=== PATIENT | male | born 1945 | race Caucasian/White ===

== ENCOUNTER 2022-04-15 20:41 | Emergency (ER) | payer MEDICARE, SELFPAY ==
[2022-04-15 20:59] VITALS: BP 133/81; PULSE 96; RESP 18; TEMP 37.4; O2SAT 94; BMI 53.1
--- NOTE | 2022-04-15 21:22 | ED.GENADULT ---
HPI - General Adult General Chief complaint: Extremity Pain/Injury, Lower Stated complaint: Possible Cellulitis on L leg Time Seen by Provider: 04/15/22 21:04 History of Present Illness HPI narrative: Pt is a 77 year old gentleman who presents with redness in his left lower extremity which just occurred today. Pt has no fever or chills. Pt has chronic lower extremity venous stasis ulcers which are unchanged from previous. Pt is prone to cellulitis of the lower extremity due to the ulcerations. In fact, I saw him with a similar presentation exactly 2 years ago tonight with a similar presentation. Pt has no pain. The redness extends from the ankle to the libia. Some mild worsening of swelling also noted. No SOB, No difficulty ambulating. Pain is minimal. No recent injuries. No treatment prior to arrival. No other symptoms. Related Data Home Medications Medication Instructions Recorded Confirmed furosemide 20 mg tablet (Lasix) 20 mg PO DAILY 04/15/22 04/15/22 metoprolol tartrate 25 mg tablet 25 mg PO DAILY 04/15/22 04/15/22 Allergies Allergy/AdvReac Type Severity Reaction Status Date / Time Penicillins Allergy Mild swollen Verified 04/15/22 21:07 ears Review of Systems Status of ROS: Reports: 10 or more systems reviewed and unremarkable except as noted in History and below [facility] Medical History (Updated 04/15/22 @ 21:36 by Martinez Arteaga MD) Chronic edema Diabetes Hypertension Peripheral vascular disease Exam Narrative: Exam Narrative: EXAM GENERAL: Patient appears comfortable and well. EYES: No scleral icterus. THYROID: no thyroid nodules or thyromegaly. LYMPH: No supraclavicular or cervical lymphadenopathy. SKIN: Visible skin seen during exam normal or with benign process only. EXT: Chronic lower extremity edema with chronic ulcerations. Erythema noted in the left lower extremity to the knee. No new skin breakdown. HEART: Regular rate and rhythm with no murmurs, rubs, or gallops. LUNGS: Clear to auscultation bilaterally with no crackles or wheezes. ABD: Soft, non tender, non distended. PSYCH: Good eye contact, speech is not pressured. Const: Vital Signs, click to edit/add: Vital Signs - 24 hr 04/15/22 20:59 Temperature 99.3 F Pulse Rate [Right Pulse Oximeter] 96 Respiratory Rate 18 Blood Pressure [Ri ght Upper Arm] 133/81 Pulse Oximetry 94 Oxygen Delivery Me thod Room Air Course Course Hospital Course: Pt seen and examined. Pt refuses venous ultrasound as previous was too painful for him. Pt understand the risk of doing so. Reevaluation(s) Reevaluation #1: Pt changed his mind on the ultrasound and then changed it back to not being willing to wait for one. Time: 22:58 Vital Signs Vital signs: Initial Vital Signs Temperature 99.3 F 04/15/22 20:59 Temperature Source Temporal Artery Scan 04/15/22 20:59 Pulse Rate 96 04/15/22 20:59 Respiratory Rate 18 04/15/22 20:59 Blood Pressure 133/81 04/15/22 20:59 Blood Pressure Mean 98 04/15/22 20:59 Blood Pressure Position Sitting 04/15/22 20:59 Pulse Oximetry 94 04/15/22 20:59 Oxygen Delivery Method 04/15/22 20:59 Vital Signs Temperature 99.3 F 04/15/22 20:59 Pulse Rate 96 04/15/22 20:59 Respiratory Rate 18 04/15/22 20:59 Blood Pressure 133/81 04/15/22 20:59 Pulse Oximetry 94 04/15/22 20:59 Oxygen Delivery Method 04/15/22 20:59 Temperature 99.3 F 04/15/22 20:59 Pulse Rate 96 04/15/22 20:59 Respiratory Rate 18 04/15/22 20:59 Blood Pressure 133/81 04/15/22 20:59 Pulse Oximetry 94 04/15/22 20:59 Oxygen Delivery Method 04/15/22 20:59 Medical Decision Making [facility] Narrative Medical decision making narrative: Pt is an obese gentleman with chronic lower extremity ulcerations who presents with redness in the left leg. No fever or signs of sepsis. Pt refuses DVT assessment and further workup. Willing to take a Tdap and be discharged on oral antibiotics which I did prescribe in the form of Keflex. I did recommend close outpt follow up. Area of erythema was carefully circumscribed. Differential Diagnosis Differential Diagnosis: Cellulits, PVD, DVT, Infected ulceration Discharge Plan Discharge Clinical Impression: Cellulitis Patient Disposition: Home, Self-Care Condition: Stable Instructions: Cellulitis (ED) Additional Instructions: Leg Elevation Keflex as directed Outpt follow up. Prescriptions: No Action metoprolol tartrate 25 mg tablet 25 mg PO DAILY furosemide [Lasix] 20 mg tablet 20 mg PO DAILY Stand Alone Forms: [employer] Info Instructions
[2022-04-15] MEDS: TETANUS/DIPHTH/PERTUSSIS 0.5 ML SYRINGE IM (21:43)
--- NOTE | 2022-04-15 22:59 | ED.NURSE ---
Pt states he has been here 40 minutes and can't wait any longer. Pt understands risks with refusing ultrasound and states he wants to leave now. MD aware. D/c instructions given and pt verbalizes understanding.
== END 2022-04-15 23:04 | disposition home or self-care (01) ==
LOC: ED 21:37
PROVIDERS: Emergency Provider Internal Medicine
DX: L03.116 Cellulitis of left lower limb (principal)
CPT/HCPCS: 90471; 90715; 99283; 99284

== ENCOUNTER 2022-04-17 06:42 | Observation (INO) | payer MEDICARE, SELFPAY ==
[2022-04-17] VITALS (7 sets, daily range): BP systolic 133–154; BP diastolic 87–103; PULSE 85–107; RESP 18–20; TEMP 36.4–36.7; O2SAT 93–98; BMI 51.5; BMI 57.5
--- NOTE | 2022-04-17 07:17 | CRLHL7_ITS ---
For Patients: As a result of the Century Cures Act, medical imaging exams and procedure reports are released immediately into your electronic medical record. You may view this report before your referring provider. If you have questions, please contact your health care provider. INDICATION: Leg pain and swelling. TECHNIQUE: Ultrasound venous duplex lower left extremity. Compression venous exam was performed using dominguez-scale, color Doppler, and spectral Doppler analysis. COMPARISON: 08/13/2012. FINDINGS: Deep veins: Sonographic imaging demonstrates the left common femoral, deep femoral, superficial femoral, popliteal, posterior tibial and the contralateral right common femoral veins to be fully compressible with normal color Doppler blood flow. Superficial veins: Greater saphenous vein is fully compressible. No popliteal cyst. IMPRESSION: Normal left lower extremity venous ultrasound, no sign of deep venous thrombosis. Dictated by Liam Hunter MD @ 04/17/2022 8:10:02 AM (Electronically Signed)
--- NOTE | 2022-04-17 07:32 | ED.GENADULT ---
HPI - General Adult General Date Seen: 04/17/22 <Kristel Sevilla MD - Last Filed: 04/17/22 08:05> Chief complaint: Lower Extremity Swelling <Kristel Sevilla MD - Last Filed: 04/17/22 08:05> Stated complaint: leg pain <Kristel Sevilla MD - Last Filed: 04/17/22 08:05> Time Seen by Provider: 04/17/22 06:58 <Kristel Sevilla MD - Last Filed: 04/17/22 08:05> Source: patient <Kristel Sevilla MD - Last Filed: 04/17/22 08:05> History of Present Illness HPI narrative: Patient presents for re-evaluation after coming in 2 days ago for pain and redness in the left leg. He had refused an ultrasound 2 days ago and comes back in saying he would like to get that done today. He says the redness and swelling started 3 days ago, he came in 2 days ago was started on Keflex and says he has taken 3 doses of that. He has not noted any change in the redness as of yet. He denies systemic symptoms. He does have a history of chronic venous stasis but does not typically have redness in his legs. He has marked asymmetry in the legs right now in terms of redness. He does have some pain although it is not severe. He does not note significant worsening in redness since 2 days ago when he was previously seen. He does have chronic ulcerations on both ankles, left greater than right. He says he has a family member who is a nurse who is been helping to address those and according to him the ulcerations are improving. He has not sought any professional wound care. He previously has seen Dr. Lorenz in the [facility] but has not seen anyone in clinic for over a year. He says he has been told he has borderline diabetes previously. He does have a history of high blood pressure and is supposed to take a water pill. He does not have a prior history of DVT. <Kristel Sevilla MD - Last Filed: 04/17/22 08:05> Related Data Home medications: Home Medications Medication Instructions Recorded Confirmed furosemide 20 mg tablet (Lasix) 20 mg PO DAILY 04/15/22 04/17/22 metoprolol succinate 25 mg 50 mg PO DAILY 04/17/22 04/17/22 tablet,extended release 24 hr (Toprol XL) <Kristel Sevilla MD - Last Filed: 04/17/22 08:05> Allergies/adverse reactions: Allergies Allergy/AdvReac Type Severity Reaction Status Date / Time Penicillins Allergy Mild swollen Verified 04/15/22 21:07 ears <Kristel Sevilla MD - Last Filed: 04/17/22 08:05> Review of Systems Status of ROS: Reports: 10 or more systems reviewed and unremarkable except as noted in History and below <Kristel Sevilla MD - Last Filed: 04/17/22 08:05> [facility] Medical History: Medical History (Updated 04/17/22 @ 17:31 by Lucila Ricardo MD) Diabetes Hypertension Lymphedema Morbid obesity Noncompliance <Kristel Sevilla MD - Last Filed: 04/17/22 08:05> Surgical History: Surgical History (Updated 04/17/22 @ 17:25 by Lucila Ricardo MD) H/O elbow surgery <Kristel Sevilla MD - Last Filed: 04/17/22 08:05> Social History: Social History Highest level of school completed/degree received: some college, no degree Smoking Status: Former smoker Do you use any of these nicotine containing products: None How often do you have a drink containing alcohol: monthly or less Alcohol type: wine How often do you have six or more drinks on one occasion: Never AUDIT-C Alcohol total score: 1 Non-prescribed substance use: denies use Caffeine: Yes (coffee) service: No <Kristel Sevilla MD - Last Filed: 04/17/22 08:05> Exam Narrative: Exam Narrative: Vital signs as noted above. In general, an alert, well-appearing patient. Head: Normocephalic, atraumatic. Eyes: Pupils are equal reactive. Extraocular movements are full. Conjunctivae are normal. ENT: Mucous membranes are moist. Throat is normal. Neck: Supple without lymphadenopathy. Heart: Regular rate and rhythm. No murmur or rub. Lungs: Clear bilaterally. No increased work of breathing, crackles or wheezes. Abdomen: Soft and nontender. No organomegaly. Extremities: Marked edema in both lower extremities, chronic venous stasis changes noted bilaterally with significant erythema on the left in somewhat of a geographic pattern, well-demarcated. There is tenderness without fluctuance or crepitus. There is a superficial ulceration noted on the lateral ankle on the left which is suppurative and somewhat malodorous. I did not undress the right ankle. Neurologic: Patient is alert and oriented to person and place. Speech is fluent. Face is symmetric. Moves all extremities equally. Affect: Confrontational. Skin: Warm and dry. Well perfused. <Kristel Sevilla MD - Last Filed: 04/17/22 08:05> Const: Vital Signs, click to edit/add: Vital Signs - 24 hr 04/17/22 06:51 04/17/22 09:41 Temperature 98.1 F Pulse Rate [Right Pulse Oximeter] 107 H 104 H Respiratory Rate 20 20 Blood Pressure [Ri ght Upper Arm] 145/96 H 154/87 H Pulse Oximetry 98 97 Oxygen Delivery Me thod Room Air Room Air <Kristel Sevilla MD - Last Filed: 04/17/22 08:05> Vital Signs, click to edit/add: Vital Signs - 24 hr 04/17/22 06:51 04/17/22 09:41 Temperature 98.1 F Pulse Rate [Right Pulse Oximeter] 107 H 104 H Respiratory Rate 20 20 Blood Pressure [Ri ght Upper Arm] 145/96 H 154/87 H Pulse Oximetry 98 97 Oxygen Delivery Me thod Room Air Room Air <Marci Wise MD - Last Filed: 04/17/22 20:17> Documenting provider has reviewed patient's vital signs: yes <Kristel Sevilla MD - Last Filed: 04/17/22 08:05> Course Course Hospital Course: Based on the appearance of the leg, absence of any appreciable change after 24 hours of antibiotics, and what I suspect is some degree of medical noncompliance, I recommended that he consider inpatient for a day or 2. Is currently adamantly opposed to that. He says he has things to do at home, he also says that in 2019 someone here told him he should use a bedpan which took issue with any seems to be holding onto that is the reason that he does not want to stay into hospital. He also says that he believes in prayer. I have talked with him a bit about my rationale for thinking he would do better in the hospital for a day or to including better wound management, IV antibiotics. Currently he is refusing. For now, I have recommended an alternate plan of some labs, IV antibiotics, ultrasound to rule out DVT which I think is relatively unlikely. If labs are reasonable, then I think he may be able to go home, continue the oral antibiotics and we will see how he does. It may be that he just needs more time on the oral antibiotics. If labs are significantly abnormal, I think pushing more for inpatient treatment would be reasonable, though he may continue to refused. I do think he would benefit from wound clinic, which as it is an outpatient therapy he says he would be agreeable to. This will be signed out to Dr. Patricia to follow up on labs and ultrasound. <Kristel Sevilla MD - Last Filed: 04/17/22 08:05> Reevaluation(s) Reevaluation #1: Have reviewed labs and recommendations with patient. With the C reactive protein being elevated, white blood count 70311 and my a review of his left leg, do agree with Dr. Sevilla that this patient should be hospitalized. This patient used to be 1 of my primary care patient's when I was in clinic. Have reviewed with him that I really do think he needs to come in for cellulitis of this left lower extremity. Dr. Sevilla had initiated Rocephin. Negrito is going to go into the hospital but tells me he does not want to stay along. I have reviewed with him that we need to do IV antibiotics, we can talk to the hospitalist about how long they think he might need to stay but ultimately we need to care for his leg and improve the infection. I subsequently talked to Dr. Ricardo the hospitalist whom is on-call. She will be completing the morning report and then coming to see the patient. He is stable. Will obtain screening COVID on him. <Marci Wise MD - Last Filed: 04/17/22 20:17> Time: 08:41 <Marci Wise MD - Last Filed: 04/17/22 20:17> Reevaluation #2: Have spoken with Dr. Ricardo formally read regarding this patient. She would like me to give him 1 g ertapenem. They will need to make some discharges before he can come to the floor. She does accept the patient and agrees with need for hospitalization. <Marci Wise MD - Last Filed: 04/17/22 20:17> Time: 09:16 <Marci Wise MD - Last Filed: 04/17/22 20:17> Vital Signs Vital signs: Initial Vital Signs Temperature 98.1 F 04/17/22 06:51 Temperature Source Temporal Artery Scan 04/17/22 06:51 Pulse Rate 107 H 04/17/22 06:51 Respiratory Rate 20 04/17/22 06:51 Blood Pressure 145/96 H 04/17/22 06:51 Blood Pressure Mean 112 04/17/22 06:51 Blood Pressure Position Sitting 04/17/22 06:51 Pulse Oximetry 98 04/17/22 06:51 Oxygen Delivery Method 04/17/22 06:51 Vital Signs Temperature 98.1 F 04/17/22 06:51 Pulse Rate 107 H 04/17/22 06:51 Respiratory Rate 20 04/17/22 06:51 Blood Pressure 145/96 H 04/17/22 06:51 Pulse Oximetry 98 04/17/22 06:51 Oxygen Delivery Method 04/17/22 06:51 Temperature 97.9 F 04/17/22 15:00 Pulse Rate 94 04/17/22 15:00 Respiratory Rate 18 04/17/22 15:00 Blood Pressure 133/87 04/17/22 15:00 Pulse Oximetry 96 04/17/22 15:00 Oxygen Delivery Method 04/17/22 15:00 <Kristel Sevilla MD - Last Filed: 04/17/22 08:05> Initial Vital Signs Temperature 98.1 F 04/17/22 06:51 Temperature Source Temporal Artery Scan 04/17/22 06:51 Pulse Rate 107 H 04/17/22 06:51 Respiratory Rate 20 04/17/22 06:51 Blood Pressure 145/96 H 04/17/22 06:51 Blood Pressure Mean 112 04/17/22 06:51 Blood Pressure Position Sitting 04/17/22 06:51 Pulse Oximetry 98 04/17/22 06:51 Oxygen Delivery Method 04/17/22 06:51 Vital Signs Temperature 98.1 F 04/17/22 06:51 Pulse Rate 107 H 04/17/22 06:51 Respiratory Rate 20 04/17/22 06:51 Blood Pressure 145/96 H 04/17/22 06:51 Pulse Oximetry 98 04/17/22 06:51 Oxygen Delivery Method 04/17/22 06:51 Temperature 97.9 F 04/17/22 15:00 Pulse Rate 94 04/17/22 15:00 Respiratory Rate 18 04/17/22 15:00 Blood Pressure 133/87 04/17/22 15:00 Pulse Oximetry 96 04/17/22 15:00 Oxygen Delivery Method 04/17/22 15:00 <Marci Wise MD - Last Filed: 04/17/22 20:17> Medical Decision Making Lab Data Lab results reviewed: Yes I reviewed the patient's lab results <Marci Wise MD - Last Filed: 04/17/22 20:17> Labs: Lab Results 04/17/22 04/17/22 04/17/22 Range/Units 07:40 07:40 07:40 WBC 19.30 H (4.50-11.00) K/uL RBC 5.27 (4.30-5.90) m/uL Hgb 15.8 (13.5-17.5) gm/dL Hct 46.5 (37.0-53.0) % MCV 88 (80-100) fL MCH 30 (26-34) pg MCHC 34 (32-36) gm/dL RDW Coeff of Alena 13.6 (11.5-15.5) % Plt Count 225 (140-440) K/uL Neut % (Auto) 87.3 H (42.0-72.0) % Lymph % (Auto) 5.6 L (20-44) % [place] % (Auto) 5.4 (0.0-11.0) % Eos % (Auto) 1.1 (0.0-7.0) % Baso % (Auto) 0.2 (0.0-3.0) % Neut # (Auto) 16.80 H (1.7-7.0) K/uL Lymph # (Auto) 1.10 (0.90-2.90) K/uL [place] # (Auto) 1.00 H (0.00-0.90) K/UL Eos # (Auto) 0.20 (0.00-0.50) K/uL Baso # (Auto) 0.00 (0.00-0.30) K/uL Sodium 134 L (135-149) mmol/L Potassium 3.8 (3.6-5.1) mmol/L Chloride 102 (96-114) mmol/L Carbon Dioxide 23 (20-32) mmol/L BUN 27 (7-30) mg/dL Creatinine 1.1 (0.5-1.5) mg/dL Estimated Creat Clear 48.59 Estimated GFR 70 ml/min Glucose 151 H (60-115) mg/dL Hemoglobin A1c 7.11 H (0-5.6) % Calcium 9.1 (8.4-10.6) mg/dL C-Reactive Protein 5.6 H (0.5-1.0) mg/dL SARS-CoV-2 (PCR) (Negative) 04/17/22 Range/Units 08:41 WBC (4.50-11.00) K/uL RBC (4.30-5.90) m/uL Hgb (13.5-17.5) gm/dL Hct (37.0-53.0) % MCV (80-100) fL MCH (26-34) pg MCHC (32-36) gm/dL RDW Coeff of Alena (11.5-15.5) % Plt Count (140-440) K/uL Neut % (Auto) (42.0-72.0) % Lymph % (Auto) (20-44) % [place] % (Auto) (0.0-11.0) % Eos % (Auto) (0.0-7.0) % Baso % (Auto) (0.0-3.0) % Neut # (Auto) (1.7-7.0) K/uL Lymph # (Auto) (0.90-2.90) K/uL [place] # (Auto) (0.00-0.90) K/UL Eos # (Auto) (0.00-0.50) K/uL Baso # (Auto) (0.00-0.30) K/uL Sodium (135-149) mmol/L Potassium (3.6-5.1) mmol/L Chloride (96-114) mmol/L Carbon Dioxide (20-32) mmol/L BUN (7-30) mg/dL Creatinine (0.5-1.5) mg/dL Estimated Creat Clear Estimated GFR ml/min Glucose (60-115) mg/dL Hemoglobin A1c (0-5.6) % Calcium (8.4-10.6) mg/dL C-Reactive Protein (0.5-1.0) mg/dL SARS-CoV-2 (PCR) Negative SARS-CoV-2 (Negative) <Kristel Sevilla MD - Last Filed: 04/17/22 08:05> Lab Results 04/17/22 04/17/22 04/17/22 Range/Units 07:40 07:40 07:40 WBC 19.30 H (4.50-11.00) K/uL RBC 5.27 (4.30-5.90) m/uL Hgb 15.8 (13.5-17.5) gm/dL Hct 46.5 (37.0-53.0) % MCV 88 (80-100) fL MCH 30 (26-34) pg MCHC 34 (32-36) gm/dL RDW Coeff of Alena 13.6 (11.5-15.5) % Plt Count 225 (140-440) K/uL Neut % (Auto) 87.3 H (42.0-72.0) % Lymph % (Auto) 5.6 L (20-44) % [place] % (Auto) 5.4 (0.0-11.0) % Eos % (Auto) 1.1 (0.0-7.0) % Baso % (Auto) 0.2 (0.0-3.0) % Neut # (Auto) 16.80 H (1.7-7.0) K/uL Lymph # (Auto) 1.10 (0.90-2.90) K/uL [place] # (Auto) 1.00 H (0.00-0.90) K/UL Eos # (Auto) 0.20 (0.00-0.50) K/uL Baso # (Auto) 0.00 (0.00-0.30) K/uL Sodium 134 L (135-149) mmol/L Potassium 3.8 (3.6-5.1) mmol/L Chloride 102 (96-114) mmol/L Carbon Dioxide 23 (20-32) mmol/L BUN 27 (7-30) mg/dL Creatinine 1.1 (0.5-1.5) mg/dL Estimated Creat Clear 48.59 Estimated GFR 70 ml/min Glucose 151 H (60-115) mg/dL Hemoglobin A1c 7.11 H (0-5.6) % Calcium 9.1 (8.4-10.6) mg/dL C-Reactive Protein 5.6 H (0.5-1.0) mg/dL SARS-CoV-2 (PCR) (Negative) 04/17/22 Range/Units 08:41 WBC (4.50-11.00) K/uL RBC (4.30-5.90) m/uL Hgb (13.5-17.5) gm/dL Hct (37.0-53.0) % MCV (80-100) fL MCH (26-34) pg MCHC (32-36) gm/dL RDW Coeff of Alena (11.5-15.5) % Plt Count (140-440) K/uL Neut % (Auto) (42.0-72.0) % Lymph % (Auto) (20-44) % [place] % (Auto) (0.0-11.0) % Eos % (Auto) (0.0-7.0) % Baso % (Auto) (0.0-3.0) % Neut # (Auto) (1.7-7.0) K/uL Lymph # (Auto) (0.90-2.90) K/uL [place] # (Auto) (0.00-0.90) K/UL Eos # (Auto) (0.00-0.50) K/uL Baso # (Auto) (0.00-0.30) K/uL Sodium (135-149) mmol/L Potassium (3.6-5.1) mmol/L Chloride (96-114) mmol/L Carbon Dioxide (20-32) mmol/L BUN (7-30) mg/dL Creatinine (0.5-1.5) mg/dL Estimated Creat Clear Estimated GFR ml/min Glucose (60-115) mg/dL Hemoglobin A1c (0-5.6) % Calcium (8.4-10.6) mg/dL C-Reactive Protein (0.5-1.0) mg/dL SARS-CoV-2 (PCR) Negative SARS-CoV-2 (Negative) <Marci Wise MD - Last Filed: 04/17/22 20:17> Imaging Data Venous US: Attestation: I have reviewed the pertinent imaging results. <Marci Wise MD - Last Filed: 04/17/22 20:17> Radiologist's impression: Patient: NEGRITO ERICKSON Facility:?[facility] Patient ID:?[id number] Site Patient ID:?[id number]. Site :?[id number] Study:?US Extremity Left LEV-04/17/2022 8:00:10 AM Ordering Physician:Latonia Humphries Final Report: INDICATION: Leg pain and swelling. TECHNIQUE: Ultrasound venous duplex lower left extremity. Compression venous exam was performed using dominguez-scale, color Doppler, and spectral Doppler analysis. COMPARISON: 08/13/2012. FINDINGS: Deep veins: Sonographic imaging demonstrates the left common femoral, deep femoral, superficial femoral, popliteal, posterior tibial and the contralateral right common femoral veins to be fully compressible with normal color Doppler blood flow. Superficial veins: Greater saphenous vein is fully compressible. No popliteal cyst. IMPRESSION: Normal left lower extremity venous ultrasound, no sign of deep venous thrombosis. Dictated by Liam Hunter MD @ 04/17/2022 8:10:02 AM (Electronic Signature) <Marci Wise MD - Last Filed: 04/17/22 20:17> Critical Care Time Critical Care Time Critical Care Time: No <Marci Wise MD - Last Filed: 04/17/22 20:17> Discharge Plan Discharge Clinical Impression: Cellulitis <Kristel Sevilla MD - Last Filed: 04/17/22 08:05> Patient Disposition: Admitted As Inpatient <Kristel Sevilla MD - Last Filed: 04/17/22 08:05> Condition: Unchanged <Kristel Sevilla MD - Last Filed: 04/17/22 08:05>
[2022-04-17 07:59] LABS: Basophils Percent Auto 0.2 % (0.0-3.0); Eosinophils Percent Auto 1.1 % (0.0-7.0); Hematocrit 46.5 % (37.0-53.0); Hemoglobin* 15.8 gm/dL (13.5-17.5); Immature Granulocytes Pct Auto 0.4 %; Lymphocytes Percent Auto 5.6 % (20-44); Mean Corpuscular HGB Conc 34 gm/dL (32-36); Mean Corpuscular Hemoglobin 30 pg (26-34); Mean Corpuscular Volume 88 fL (80-100); Monocytes Percent Auto 5.4 % (0.0-11.0); Neutrophils Percent Auto 87.3 % (42.0-72.0); Platelet Count* 225 K/uL (140-440); RDW Coefficient of Variation % 13.6 % (11.5-15.5); Red Blood Count 5.27 m/uL (4.30-5.90)
[2022-04-17 08:02] LABS: Slide Review Reflex No
[2022-04-17] MEDS: cefTRIAXone 1 GM in 0.9 % SODIUM CHLORIDE Mini-bag 100 ML IVPB (08:05)
[2022-04-17 08:17] LABS: Chloride* 102 mmol/L (96-114); Sodium* 134 mmol/L (135-149)
[2022-04-17 08:18] LABS: Potassium* 3.8 mmol/L (3.6-5.1)
[2022-04-17 08:20] LABS: Creatinine* 1.1 mg/dL (0.5-1.5); Est. Creatinine Clearance* 48.59; Estimated Glomerular Filt Rate 70 ml/min
[2022-04-17 08:21] LABS: Blood Urea Nitrogen* 27 mg/dL (7-30); Calcium* 9.1 mg/dL (8.4-10.6); Carbon Dioxide* 23 mmol/L (20-32); Glucose* 151 mg/dL (60-115)
[2022-04-17 08:24] LABS: C Reactive Protein* 5.6 mg/dL (0.5-1.0)
[2022-04-17 09:30] LABS: SARS PCR* Negative SARS-CoV-2 (Negative)
[2022-04-17] MEDS: ERTAPENEM 1 GM in 0.9 % SODIUM CHLORIDE Mini-bag 100 ML IVPB (09:32)
[2022-04-17 10:10] LABS: Hemoglobin A1C* 7.11 % (0-5.6)
--- NOTE | 2022-04-17 11:58 | PM.IMHP1 ---
Hospitalist- H&P: HPI History of Present Illness Date Seen: 04/17/22 Chief complaint: leg pain Narrative: ADMISSION HISTORY AND PHYSICAL - HOSPITALIST Chief Complaint: My left leg is swollen HPI: 77-year-old Prabhu presents with ongoing pain and redness to his left leg. He states his legs are always enlarged and about once a year he gets a cellulitis. Sometimes he just has to go to the ED for antibiotics other times he has been admitted. It appears he has either had Keflex or Ancef in the past. He states this is the worst it has ever been. He denies fevers and chills. He has had a good appetite. He states that the symptoms have really taken off in the last 3 days. He said he is having some difficulty walking as the leg is swollen and painful. He said the tipping point for coming in was worry about it being a blood clot. As well as the redness creeping up his mid thigh. I've updated the PFSH, medications and allergies in the [facility]se tabs. INVESTIGATIONS: LABS/MICRO/ECG/IMAGING T-max 99.3? in the last 3 days Hypertensive to 154/87 Pulse 1 0 4-107 Respiratory rate 20 Pulse ox 97% Reported weight 136 kg CBC is remarkable for a marked leukocytosis 19.3, 87.3% neutrophils Hemoglobin is 15.8, platelet count 225 Sodium today is 134, creatinine is 1.1 A1c 7.11 C reactive protein 5.6 Glucose 151 Left lower leg ultrasound: Normal left lower extremity venous ultrasound, no sign of deep venous thrombosis. REVIEW OF SYSTEMS: 12-point ROS completed with patient and negative unless otherwise stated in HPI or below. PHYSICAL EXAM: CODE STATUS: Full code CONSTITUTIONAL: Conversive, good historian. A/O. Knows setting and context. VITAL SIGNS: see record. HEENT: Normocephalic, atraumatic. PERRL, EOMI, conjunctivae pink, no scleral icterus. Ears and nose externally normal. Pharynx normal. NECK: No JVD. No carotid bruit, no thyromegaly, no adenopathy. CHEST: Clear to auscultation bilaterally HEART: S1 and S2 normal. No harsh murmurs. Edema MUSCULOSKELETAL: Left leg: Diffuse edema, erythema, leathered lymphedema with dry skin with chronic stasis changes. No weeping noted. Fungal toenails. Right leg: Less swollen much less red however same stasis and lymphedema changes. NEURO: Cranial nerves intact. Grossly intact. No asymmetric findings. SKIN: No rashes, petechiae, concerning changes PSYCHIATRIC: Euthymic. ADMIT TO MEDSURG: FLOOR CARE DVT: Lovenox GI: PO intake Time spent: 70 minutes examining patient, conferring with family and patient, care staff, developing care plan [facility] Medical History (Updated 04/17/22 @ 17:31 by Lucila Ricardo MD) Diabetes Hypertension Lymphedema Morbid obesity Noncompliance Surgical History (Updated 04/17/22 @ 17:25 by Lucila Ricardo MD) H/O elbow surgery Social History Highest level of school completed/degree received: some college, no degree Smoking Status: Former smoker Do you use any of these nicotine containing products: None How often do you have a drink containing alcohol: monthly or less Alcohol type: wine How often do you have six or more drinks on one occasion: Never AUDIT-C Alcohol total score: 1 Non-prescribed substance use: denies use Caffeine: Yes (coffee) service: No Meds Home Medications and Allergies Home Medications Medication Instructions Recorded Confirmed Type furosemide 20 mg tablet (Lasix) 20 mg PO DAILY 04/15/22 04/17/22 History metoprolol succinate 25 mg 50 mg PO DAILY 04/17/22 04/17/22 History tablet,extended release 24 hr (Toprol XL) Allergies Allergy/AdvReac Type Severity Reaction Status Date / Time Penicillins Allergy Mild swollen Verified 04/15/22 21:07 ears Exam Const: Vital Signs, click to edit/add: Vital Signs - 24 hr 04/17/22 06:51 04/17/22 09:41 Temperature 98.1 F Pulse Rate [Right Pulse Oximeter] 107 H 104 H Respiratory Rate 20 20 Blood Pressure [Ri ght Upper Arm] 145/96 H 154/87 H Pulse Oximetry 98 97 Oxygen Delivery Me thod Room Air Room Air Hospitalist - H&P: Result Labs Labs: Short CBC 04/17/22 Range/Units 07:40 WBC 19.30 H (4.50-11.00) K/uL Hgb 15.8 (13.5-17.5) gm/dL Hct 46.5 (37.0-53.0) % Plt Count 225 (140-440) K/uL BMP 04/17/22 07:40 Sodium 134 L Potassium 3.8 Chloride 102 Carbon Dioxide 23 BUN 27 Creatinine 1.1 Glucose 151 H Calcium 9.1 Assessment and Plan Assessment and plan (1) Cellulitis: Problem comment: 1 g ertapenem Q 24 hours. Wound care consult. Trend inflammatory markers. Blood cultures pending. Status: Acute (2) Noncompliance: Problem comment: complicating care Status: Acute (3) Hypertension: Problem comment: Prescribed metoprolol, noncompliance Status: Acute (4) Diabetes: Problem comment: Non compliant SSI/Accuchecks diabetic teaching Status: Acute (5) Lymphedema: Problem comment: Severe Status: Acute (6) Morbid obesity: Problem comment: BMI greater than 50 Status: Acute
--- NOTE | 2022-04-17 12:54 | ED.NURSE ---
given report to Kristel Ta who will admit the patient to M/S via wc to room 277.
[2022-04-17] MEDS: METOPROLOL TARTRATE 100 MG TABLET 50 MG PO (20:49)
[2022-04-17] MEDS: ENOXAPARIN 40 MG/0.4 ML INJ SUBCUT (20:50)
[2022-04-17] MEDS: SODIUM CHLORIDE 0.9 % (FLUSH) 10 ML SYRINGE 5 ML IVF (20:53)
--- NOTE | 2022-04-17 23:03 | PC.NURSE ---
Shift note: Pt is independent in room. Both LE appears edematous, reddened and weeping. Confirmed mild discomfort. Pleasant and cooperative with care and treatment.
[2022-04-18 03:00] VITALS: BP 140/90; PULSE 81; RESP 20; TEMP 36.6; O2SAT 95
--- NOTE | 2022-04-18 05:10 | PC.NURSE ---
[id number] Pt independent in room, rating pain 4/10 during night, declined pain medication. encouraged to elevate LLE, compliant. LLE outlined, red, raised and some drainage noted.
[2022-04-18] MEDS: OMEPRAZOLE 20 MG CAPSULE DR 40 MG PO (06:29)
[2022-04-18 07:00] VITALS: BP 122/74; PULSE 91; RESP 18; TEMP 36.9; O2SAT 96
[2022-04-18 08:04] LABS: Basophils Percent Auto 0.2 % (0.0-3.0); Eosinophils Percent Auto 1.7 % (0.0-7.0); Hematocrit 45.1 % (37.0-53.0); Hemoglobin* 15.3 gm/dL (13.5-17.5); Immature Granulocytes Pct Auto 0.7 %; Lymphocytes Percent Auto 9.1 % (20-44); Mean Corpuscular HGB Conc 34 gm/dL (32-36); Mean Corpuscular Hemoglobin 30 pg (26-34); Mean Corpuscular Volume 88 fL (80-100); Monocytes Percent Auto 7.3 % (0.0-11.0); Platelet Count* 220 K/uL (140-440); RDW Coefficient of Variation % 13.5 % (11.5-15.5); Red Blood Count 5.13 m/uL (4.30-5.90); White Blood Count* 16.86 K/uL (4.50-11.00)
[2022-04-18 08:05] LABS: HCO3 VBG 23 mmol/L (21-28); PCO2 VBG 32 mmHG (40-50); PO2 VBG 79.9 mmHG (25-47); pH VBG 7.453 (7.32-7.43)
[2022-04-18 08:08] LABS: Slide Review Reflex No
[2022-04-18 08:43] LABS: Chloride* 104 mmol/L (96-114); Sodium* 133 mmol/L (135-149)
[2022-04-18 08:44] LABS: Albumin* 3.6 g/dL (3.3-5.0)
[2022-04-18 08:45] LABS: Potassium* 4.1 mmol/L (3.6-5.1)
--- NOTE | 2022-04-18 08:46 | REH.OT ---
Orders received for OT eval and treat. Patient screened for OT needs. None noted. Patient up independently in room. Able to compete ADLs I. No formal OT warranted.
[2022-04-18 08:47] LABS: Alanine Aminotransferase* 17 U/L (4-50); Alkaline Phosphatase* 112 U/L (40-150); Aspartate Amino Transferase* 28 U/L (12-35); Blood Urea Nitrogen* 23 mg/dL (7-30); Carbon Dioxide* 20 mmol/L (20-32); Cholesterol* 135 mg/dL (90-199); Est. Creatinine Clearance* 53.44; Estimated Glomerular Filt Rate 78 ml/min; Glucose* 130 mg/dL (60-115); Total Protein* 7.5 g/dL (6.0-8.3); Uric Acid* 8.7 mg/dL (2.2-8.4)
[2022-04-18 08:48] LABS: HDL Cholesterol* 28 mg/dL (>=40); LDL Cholesterol Calculated 84 mg/dL (<100); Triglycerides* 114 mg/dL (40-149)
[2022-04-18] MEDS: METOPROLOL SUCCINATE (XL) 25 MG TAB PO (08:48)
[2022-04-18] MEDS: SODIUM CHLORIDE 0.9 % (FLUSH) 10 ML SYRINGE 5 ML IVF ×2 (08:48→21:33)
[2022-04-18] MEDS: FUROSEMIDE 20 MG TABLET PO (08:48)
[2022-04-18] MEDS: ERTAPENEM 1 GM in 0.9 % SODIUM CHLORIDE Mini-bag 100 ML IVPB (08:49)
[2022-04-18 08:50] LABS: C Reactive Protein* 7.4 mg/dL (0.5-1.0)
[2022-04-18 08:56] LABS: NT Pro B Type NatriureticPept* 2850 pg/mL
[2022-04-18 15:00] VITALS: BP 132/72; PULSE 88; PULSE 91; RESP 18; TEMP 36.6; O2SAT 96
--- NOTE | 2022-04-18 15:39 | P.IMPN_ITS ---
Progress Note: A&P Assessment and plan (1) Cellulitis: Problem details: Appreciate the exceptional wound care consult. Adding vancomycin. Continue ertapenem for now. Wound culture pending Trend inflammatory markers. Blood cultures pending. Status: Acute (2) Noncompliance: Problem details: complicating care Status: Acute (3) Hypertension: Problem details: Prescribed metoprolol, noncompliance Status: Acute (4) Diabetes: Problem details: Non compliant SSI/Accuchecks diabetic teaching Status: Acute (5) Lymphedema: Problem details: Severe Status: Acute (6) Morbid obesity: Problem details: BMI greater than 50 Status: Acute Subjective Date Seen: 04/18/22 Interval history: Hospital Medicine Daily Progress Note - Day #: CC: OVERNIGHT UPDATES FROM STAFF & MED, LAB, IMAGING UPDATES 98.4 122/74 Pulse 91 Respiratory rate 18 Pulse ox 96% on room air 150.4 kilos CBC down trended from 19.3-16.8 pH 7.45 we this morning Mildly low sodium 133 Creatinine is 1.0 Uric acid 8.7 I ionized calcium 1.10 CRP up trending from 5.6-7.4 Blood sugars have been less than 200 Review of Systems: See subjective Cardiac: No new chest pain/pressure/palpitations. Respiratory: no new dyspnea. GI: No abdominal bloating Objective: Vitals: see above Lungs: Clear. Cardiac: S1S2. large edematous, red weepy right leg; outline shows extension up the left thigh. Erysipelas appearing anterior thigh. Posterior calf has such tense skin, the skin is breaking down and weepy. Disposition/Potential discharge - Likely to return to previous living situation. Total time is 35 minutes with greater than 50% spent in counseling and coordination of care. Exam Const: Vital Signs, click to edit/add: Vital Signs - 24 hr 04/17/22 19:00 04/17/22 23:00 04/17/22 23:00 Temperature 97.6 F 97.6 F Pulse Rate [Pulse Oximeter] 91 85 Respiratory Rate 18 18 20 Blood Pressure [Le ft Arm] 146/91 H 138/101 H Pulse Oximetry 96 93 93 Oxygen Delivery Me thod Room Air Room Air Room Air 04/18/22 03:00 04/18/22 07:00 04/18/22 07:00 Temperature 97.9 F 98.4 F Pulse Rate [Pulse Oximeter] 81 91 Respiratory Rate 20 18 Blood Pressure [Le ft Arm] 140/90 H 122/74 Pulse Oximetry 95 96 96 Oxygen Delivery Me thod Room Air Room Air Room Air Labs Labs: Laboratory Results - last 24 hr 04/18/22 04/18/22 04/18/22 07:30 07:30 07:30 WBC 16.86 H RBC 5.13 Hgb 15.3 Hct 45.1 MCV 88 MCH 30 MCHC 34 RDW Coeff of Alena 13.5 Plt Count 220 Neut % (Auto) 81.0 H Lymph % (Auto) 9.1 L [place] % (Auto) 7.3 Eos % (Auto) 1.7 Baso % (Auto) 0.2 Neut # (Auto) 13.70 H Lymph # (Auto) 1.50 [place] # (Auto) 1.20 H Eos # (Auto) 0.30 Baso # (Auto) 0.00 VBG pH 7.453 H VBG pCO2 32 L VBG pO2 79.9 H VBG HCO3 23 Sodium 133 L Potassium 4.1 Chloride 104 Carbon Dioxide 20 BUN 23 Creatinine 1.0 Estimated Creat Clear 53.44 Estimated GFR 78 Glucose 130 H Uric Acid 8.7 H Calcium 9.0 Ionized Calcium Phil 1.10 L Magnesium 2.0 Total Bilirubin 1.0 AST 28 ALT 17 Alkaline Phosphatase 112 C-Reactive Protein 7.4 H NT-Pro-B Natriuret Pep 2850 Total Protein 7.5 Albumin 3.6 Triglycerides 114 Cholesterol 135 LDL Cholesterol, Calc 84 HDL Cholesterol 28 L TSH 04/18/22 07:30 WBC RBC Hgb Hct MCV MCH MCHC RDW Coeff of Alena Plt Count Neut % (Auto) Lymph % (Auto) [place] % (Auto) Eos % (Auto) Baso % (Auto) Neut # (Auto) Lymph # (Auto) [place] # (Auto) Eos # (Auto) Baso # (Auto) VBG pH VBG pCO2 VBG pO2 VBG HCO3 Sodium Potassium Chloride Carbon Dioxide BUN Creatinine Estimated Creat Clear Estimated GFR Glucose Uric Acid Calcium Ionized Calcium Phil Magnesium Total Bilirubin AST ALT Alkaline Phosphatase C-Reactive Protein NT-Pro-B Natriuret Pep Total Protein Albumin Triglycerides Cholesterol LDL Cholesterol, Calc HDL Cholesterol TSH 2.470
[2022-04-18 16:23] LABS: Lactate* 1.2 mmol/L (0.5-1.9)
[2022-04-18 16:51] LABS: Procalcitonin* 0.31 ng/mL (<0.50)
[2022-04-18 19:00] VITALS: BP 120/59; PULSE 81; RESP 18; TEMP 36.4; O2SAT 94
--- NOTE | 2022-04-18 19:31 | PC.NURSE ---
shift note: pt with increased redness with blistering to lt l/e from original markings. Redness from foot to groin on Lt l/e. PP bilat feet weak. Lt l/e hot to touch and 3+ edema. RESIDENCY DIRECTOR from wound clinic assessed and dressed lt l/e. mepilex to rt l/e with tubex to cover. Lt with xeroform to back of calf with abd then tubex to cover. LS clr. pt afeb with stable vss. IV to rt FA intact. Pt expressing anger with poc. Nurse freelance digital project manager, patient avocate and security talking with pt. Pt continued to express anger about situation and requested apology from nurse freelance digital project manager. Nurse freelance digital project manager met with pt and talked to him. Pt's son Chris updated on phone.
[2022-04-18] MEDS: ENOXAPARIN 40 MG/0.4 ML INJ SUBCUT (21:32)
[2022-04-18 23:00] VITALS: BP 126/62; PULSE 78; PULSE 81; RESP 18; TEMP 36.5; O2SAT 94; O2SAT 96
[2022-04-19 03:00] VITALS: BP 138/80; PULSE 72; RESP 18; TEMP 36.7; O2SAT 93
[2022-04-19 07:00] VITALS: BP 147/105; PULSE 72; PULSE 80; RESP 27; TEMP 36.4; O2SAT 97
--- NOTE | 2022-04-19 07:12 | PC.NURSE ---
VSS on RA. Patient is alert and oriented x4. Denies pain this shift. IV antibiotic infused. Pt is independent in room, continent of bowel and bladder. Call light appropriate. Call light is within reach.
[2022-04-19] MEDS: ERTAPENEM 1 GM in 0.9 % SODIUM CHLORIDE Mini-bag 100 ML IVPB (08:07)
[2022-04-19] MEDS: OMEPRAZOLE 20 MG CAPSULE DR 40 MG PO (08:15)
[2022-04-19 08:17] LABS: HCO3 VBG 25 mmol/L (21-28); Lactate* 1.4 mmol/L (0.5-1.9); PCO2 VBG 40 mmHG (40-50); PO2 VBG 37.2 mmHG (25-47); pH VBG 7.404 (7.32-7.43)
[2022-04-19 08:23] LABS: Hematocrit 43.1 % (37.0-53.0); Hemoglobin* 14.5 gm/dL (13.5-17.5); Mean Corpuscular HGB Conc 34 gm/dL (32-36); Mean Corpuscular Hemoglobin 30 pg (26-34); Mean Corpuscular Volume 89 fL (80-100); Platelet Count* 230 K/uL (140-440); Red Blood Count 4.83 m/uL (4.30-5.90)
[2022-04-19 08:36] LABS: Slide Review Reflex No
[2022-04-19 08:40] LABS: Chloride* 105 mmol/L (96-114); Potassium* 5.2 mmol/L (3.6-5.1); Sodium* 136 mmol/L (135-149)
[2022-04-19 08:43] LABS: Blood Urea Nitrogen* 24 mg/dL (7-30); Carbon Dioxide* 21 mmol/L (20-32); Creatinine* 1.1 mg/dL (0.5-1.5); Est. Creatinine Clearance* 48.59; Estimated Glomerular Filt Rate 70 ml/min
[2022-04-19 08:44] LABS: Calcium* 8.5 mg/dL (8.4-10.6); Glucose* 118 mg/dL (60-115)
[2022-04-19 08:46] LABS: C Reactive Protein* 7.3 mg/dL (0.5-1.0)
--- NOTE | 2022-04-19 10:19 | PM.IMPN1 ---
Progress Note: A&P Assessment and plan (1) Cellulitis: Problem details: Appreciate the exceptional wound care consult. discontinue vancomycin. Continue ertapenem. wound culture growing gram negative rods; susceptibility pending Trend inflammatory markers. Blood cultures pending (NGTD). continue lasix and elevate legs Status: Acute (2) Morbid obesity: Problem details: BMI greater than 50 Status: Acute (3) Lymphedema: Problem details: Severe Status: Acute (4) Diabetes: Problem details: Non compliant continue SSI/Accuchecks Status: Acute (5) Hypertension: Problem details: Prescribed metoprolol, noncompliance Status: Acute (6) Noncompliance: Problem details: complicating care Status: Acute (7) Hyperkalemia: Problem details: potassium 5.2; will give IV lasix X1 Status: Acute Subjective Date Seen: 04/19/22 Interval history: patient sitting at table eating breakfast he feels sausage and potatoes are too dry No acute events overnight patient encouraged to elevate legs Exam Narrative: Exam Narrative: Gen: Morbidly obese male NAD HEENT: NcAT EOMI MMM CV: RRR s1 s2 Lctab Abd: obese soft, nt Extremities: lower extremities wrapped in dressing; continues to have erythema extending to mid thigh; warm to touch; 2+ edema Const: Vital Signs, click to edit/add: Vital Signs - 24 hr 04/18/22 15:00 04/18/22 15:00 04/18/22 15:00 Temperature 97.8 F Pulse Rate [Pulse Oximeter] 91 88 Respiratory Rate 18 18 18 Blood Pressure [Le ft Arm] 132/72 Pulse Oximetry 96 96 Oxygen Delivery Me thod Room Air Room Air 04/18/22 19:00 04/18/22 23:00 04/18/22 23:00 Temperature 97.6 F Pulse Rate [Pulse Oximeter] 81 81 Respiratory Rate 18 18 18 Blood Pressure [Le ft Arm] 120/59 L Pulse Oximetry 94 94 Oxygen Delivery Me thod Room Air Room Air 04/18/22 23:00 04/19/22 03:00 Temperature 97.7 F 98.1 F Pulse Rate [Pulse Oximeter] 78 72 Respiratory Rate 18 18 Blood Pressure [Le ft Arm] 126/62 138/80 Pulse Oximetry 96 93 Oxygen Delivery Me thod Room Air Room Air Labs Labs: Laboratory Results - last 24 hr 04/18/22 04/18/22 04/18/22 07:30 07:30 07:30 WBC RBC Hgb Hct MCV MCH MCHC Plt Count VBG pH VBG pCO2 VBG pO2 VBG HCO3 Sodium Potassium Chloride Carbon Dioxide BUN Creatinine Estimated Creat Clear Estimated GFR Glucose Lactate 1.2 Calcium C-Reactive Protein Procalcitonin 0.31 Prolactin Baseline Cancelled 04/19/22 04/19/22 04/19/22 07:44 07:44 07:44 WBC 12.90 H RBC 4.83 Hgb 14.5 Hct 43.1 MCV 89 MCH 30 MCHC 34 Plt Count 230 VBG pH 7.404 VBG pCO2 40 VBG pO2 37.2 VBG HCO3 25 Sodium 136 Potassium 5.2 H Chloride 105 Carbon Dioxide 21 BUN 24 Creatinine 1.1 Estimated Creat Clear 48.59 Estimated GFR 70 Glucose 118 H Lactate 1.4 Calcium 8.5 C-Reactive Protein 7.3 H Procalcitonin 0.20 Prolactin Baseline
[2022-04-19] MEDS: SODIUM CHLORIDE 0.9 % (FLUSH) 10 ML SYRINGE 5 ML IVF (10:27)
[2022-04-19] MEDS: FUROSEMIDE 20 MG TABLET PO (10:27)
[2022-04-19] MEDS: METOPROLOL SUCCINATE (XL) 25 MG TAB PO (10:28)
[2022-04-19 11:00] VITALS: BP 147/111; PULSE 88; RESP 27; O2SAT 95
[2022-04-19] MEDS: FUROSEMIDE 10 MG/ML inj IVP (11:38)
--- NOTE | 2022-04-19 11:55 | PM.WSCN ---
Date of Consult Consult date: 04/18/22 Requesting Physician: Hospitalist Primary Care Provider: Not a Local Provider Consult Narrative Reason for consult: BLE chronic lymphedema and open wounds to BLE Narrative: Glen Mina is a 77 year old male with poorly controlled type 2 diabetes and morbid obesity, admitted to hospital with cellulitis of LLE on 04/17/22. Known history of hypertension and he was prescribed Lasix but admits he has not taken it recently as he is long overdue for annual physical exam and needs to reestablish care. He initially had presented to the ER on 04/15/2022, with complaints of a left lower extremity redness and pain. No known injuries. ER note mentions the redness extended from ankle to knee. He was offered ultrasound on 04/15/2022 which he declined for DVT evaluation, but subsequently we was diagnosed with cellulitis and received tdap and started on oral Keflex and discharged home. he presented for re-evaluation of the cellulitis again to the ER in 04/17/2022. He has known venous insufficiency and lymphedema to bilateral lower extremities. He has a healing venous ulceration to right lower extremity that he had prior to his admission to the hospital. He was treating the wound to right lower extremity with Vaseline and a non adherent dressing. He does not utilize compression therapy. He does not take his diabetic medications as previously prescribed and does not regularly check his blood sugars. He states he has not had a follow-up for his diabetes in well over a year. Does not count carbs. 04/17/22 A1C 7.1%. BMI 56.1 He denies having chills or fever today. He has been vitally stable. He is on IV ertapenem pending cultures. Up walking independently around hospital room. Tolerating PO. Review of Systems Status of ROS: Reports: 6 or more systems reviewed and unremarkable except as noted in History and below 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 Surgical History (Updated 05/16/22 @ 10:46 by Jazlyn Ferreira) H/O elbow surgery History of Achilles tendon repair Family History (Updated 05/16/22 @ 10:51 by Jazlyn Ferreira) Mother Dementia Brother Sleep apnea Father Myocardial infarction Social History (Updated 05/16/22 @ 10:51 by Jazlyn Ferreira) Narrative: Nicotine dependence Does not drink alcohol Does not use illicit drugs Highest level of school completed/degree received: some college, no degree Smoking Status: Never smoker Do you use any of these nicotine containing products: None How often do you have a drink containing alcohol: monthly or less Alcohol type: wine How often do you have six or more drinks on one occasion: Never AUDIT-C Alcohol total score: 1 Non-prescribed substance use: denies use Caffeine: Yes (coffee) service: No Meds Home Medications and Allergies Allergies Allergy/AdvReac Type Severity Reaction Status Date / Time Penicillins Allergy Mild swollen Verified 05/20/22 11:04 ears Exam Narrative: Exam Narrative: General: NAD, Alert Pulmonary: unlabored. Speaking in full sentences. Cardiac: Pedal pulses strong and palpable to bilateral feet. BLE: Hyper pigmentation hemosiderin staining, hyperplasia with small areas of hyperkeratosis to bilateral lower extremities left greater than right. 3+ nonpitting edema. thickened dystrophic nails. Right leg 1cmX0.5cmX0.1cm, 100% closed epithelialized, scab. no drainage. rosas-wound WNL. LLE: small ulceration superior to ankle lateral aspect, measuring 1.7cmX1.5cmX0.2cm-moderate serosang drainage full-thickness, 100% slough and biofilm. Additional ulceration proximal lateral aspect measuring [id number]-moderate serosang drainage full-thickness 75% adherent slough and biofilm, 25% subcutaneous. well-demarcated circumferential erythema, raised confluent induration, and edema on his left lower extremity extending from dorsal aspect of left foot up to his left thigh. No fluctuance or crepitus. Skin temp increased compared to RLE. Skin marker outline showing erythema is just outside the boundary. Neuro: grossly intact Const: Vital Signs, click to edit/add: Vital Signs - 24 hr 04/18/22 15:00 04/18/22 15:00 04/18/22 15:00 Temperature 97.8 F Pulse Rate [Pulse Oximeter] 91 88 Respiratory Rate 18 18 18 Blood Pressure [Le ft Arm] 132/72 Pulse Oximetry 96 96 Oxygen Delivery Me thod Room Air Room Air 04/18/22 19:00 04/18/22 23:00 04/18/22 23:00 Temperature 97.6 F Pulse Rate [Pulse Oximeter] 81 81 Respiratory Rate 18 18 18 Blood Pressure [Le ft Arm] 120/59 L Pulse Oximetry 94 94 Oxygen Delivery Me thod Room Air Room Air 04/18/22 23:00 04/19/22 03:00 Temperature 97.7 F 98.1 F Pulse Rate [Pulse Oximeter] 78 72 Respiratory Rate 18 18 Blood Pressure [Le ft Arm] 126/62 138/80 Pulse Oximetry 96 93 Oxygen Delivery Me thod Room Air Room Air Documenting provider has reviewed patient's vital signs: yes Labs Labs: Short CBC 04/19/22 Range/Units 07:44 WBC 12.90 H (4.50-11.00) K/uL Hgb 14.5 (13.5-17.5) gm/dL Hct 43.1 (37.0-53.0) % Plt Count 230 (140-440) K/uL BMP 04/19/22 07:44 Sodium 136 Potassium 5.2 H Chloride 105 Carbon Dioxide 21 BUN 24 Creatinine 1.1 Glucose 118 H Calcium 8.5 Assessment and Plan Assessment and plan (1) Morbid obesity: Problem comment: BMI greater than 50 Status: Acute (2) Lymphedema: Problem comment: Severe - he needs weight loss and lymphedema care. Status: Acute (3) Type 2 diabetes with skin ulcer of lower extremity: Problem comment: Instructing on diabetic care was given. 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 I suspect he will be than on an oral antibiotic with follow-up with the wound care clinic next week. Status: Acute Plan Discussed at length that success with his lymphedema, diabetes, and wound healing is multifactorial and he will need to make significant permeant lifestyle changes.? ?? DM2 & Morbid Obesity: Keep blood sugars below 170 at all times, ideally 150 to help with wound healing. Increase dietary lean protein consumption. Start multi-vitamin with iron and zinc. Recommend nutritional consult for patient to receive education to help him with losing weight and keeping his blood sugars well controlled. Focus will be on sustainable weightloss while supporting his nutritional needs. Recommended patient speak with his medical provider to see if he is eligible to start mounjaro to help with management of his diabetes and facilitate weightloss. ? Lyhmphedema: tubigrip applied see wound orders below patient to keep legs elevated when sitting up in chair.? Advised he needs to walk minimum of 4x a day for 5-10min. ? ?? Wound Care: LLE lateral wound- cleanse with wound cleanser, apply medihoney to xeroform and place on LLE wound. Cover with ABD-secure with H size tubigrip from toes to knee. RLE posterior calf wound- cleanse with wound cleanser, apply medihoney to xeroform and place on wound. Cover with 3X3 or similar size border foam gauze (mepilex). Apply size G tubi-lay out and detail drafter from toes to knee. Change EOD & PRN? Referral to wound center upon hospital discharge to assist patient in getting velcro compression wraps and lymphedema pumps. ? ?? verbalized an understanding, was open and receptive to our discussion topics and care plan.?
--- NOTE | 2022-04-19 12:54 | PM.WSPN ---
Progress Note: A&P Assessment and plan (1) Chronic ulcer of lower extremity: Status: Acute (2) Edema of both lower legs: Status: Acute (3) Venous insufficiency (chronic) (peripheral): Status: Acute Plan To discharge home. Will continue on abx treatment per hospitalist. edema and wounds are stable and adequate managed with current dressings. wound center on 04/26/21 at 0800. Plans for initiation of Velcro compression wraps and measurements to begin process for insurance approval of lymphedema. No changes to wound care orders. Time Spent With Patient Total time spent: 25 Subjective Time Seen by Provider: 12:30 Date Seen: 04/19/22 Interval history: seen yesterday by wound services for LLE cellulitis and BLE edema and wounds. wound culture culture grew gram negative-sensitivities are pending. continues on IV ertapenem. Remains afebrile, VSS. LLE edema improved. Patient reports pain improved. Dressings CDI. Compliant with Tubigrip compression overnight two-layer not utilize as patient reports a history of allergy/ sensitivity to Coban. LLE wound stable no change from yesterday. Patient discharge from hospital, will f/u in wound center Exam Narrative: Exam Narrative: General: NAD, alert interactive Head: normal Cardiac: pedal pulses 2+ BLE: erythema improved, more diffuse today, to starting to recede. no change to wound size or characteristics from yesterdays evaluation, edema stable. Psych: normal affect Const: Vital Signs, click to edit/add: Vital Signs - 24 hr 04/18/22 15:00 04/18/22 15:00 04/18/22 15:00 Temperature 97.8 F Pulse Rate [Pulse Oximeter] 91 88 Respiratory Rate 18 18 18 Blood Pressure [Le ft Arm] 132/72 Pulse Oximetry 96 96 Oxygen Delivery Me thod Room Air Room Air 04/18/22 19:00 04/18/22 23:00 04/18/22 23:00 Temperature 97.6 F Pulse Rate [Pulse Oximeter] 81 81 Respiratory Rate 18 18 18 Blood Pressure [Le ft Arm] 120/59 L Pulse Oximetry 94 94 Oxygen Delivery Me thod Room Air Room Air 04/18/22 23:00 04/19/22 03:00 Temperature 97.7 F 98.1 F Pulse Rate [Pulse Oximeter] 78 72 Respiratory Rate 18 18 Blood Pressure [Le ft Arm] 126/62 138/80 Pulse Oximetry 96 93 Oxygen Delivery Me thod Room Air Room Air Documenting provider has reviewed patient's vital signs: yes Labs Labs: Laboratory Results - last 24 hr 04/18/22 04/18/22 04/18/22 07:30 07:30 07:30 WBC RBC Hgb Hct MCV MCH MCHC Plt Count VBG pH VBG pCO2 VBG pO2 VBG HCO3 Sodium Potassium Chloride Carbon Dioxide BUN Creatinine Estimated Creat Clear Estimated GFR Glucose Lactate 1.2 Calcium C-Reactive Protein Procalcitonin 0.31 Prolactin Baseline Cancelled 04/19/22 04/19/22 04/19/22 07:44 07:44 07:44 WBC 12.90 H RBC 4.83 Hgb 14.5 Hct 43.1 MCV 89 MCH 30 MCHC 34 Plt Count 230 VBG pH 7.404 VBG pCO2 40 VBG pO2 37.2 VBG HCO3 25 Sodium 136 Potassium 5.2 H Chloride 105 Carbon Dioxide 21 BUN 24 Creatinine 1.1 Estimated Creat Clear 48.59 Estimated GFR 70 Glucose 118 H Lactate 1.4 Calcium 8.5 C-Reactive Protein 7.3 H Procalcitonin 0.20 Prolactin Baseline
[2022-04-19 13:00] VITALS: RESP 18; TEMP 36.7
--- NOTE | 2022-04-19 15:20 | P.DS_ITS ---
DS: Providers Provider Date Seen: 04/19/22 Date of admission: 04/17/22 13:00 Primary care physician: Not a Local Provider Admitting Clinician: Lucila Ricardo MD Consults: 04/17/22 07:16 Consult to Wound Care [CONS] Urgent Comment: Consulting Provider: Kristel Sevilla 04/17/22 13:56 Consult to Occupational Therapy [CONS] Routine Comment: Reason(s) for OT Consult:: Evaluate and Treat Any Restrictions?:: No Restrictions Consult to Physical Therapy [CONS] Routine Comment: Reason(s) for PT Consult:: Evaluate and Treat Any Restrictions?:: No Restrictions Consult to Bale Tie Machine Operator [CONS] Routine Comment: Reason for Consult:: Social Service Consult Attending Physician on discharge: Lucila Ricardo MD Date of Discharge: 04/19/22 DS: Diagnosis Discharge Diagnosis (1) Cellulitis of left lower extremity: Status: Acute Problem details: We will do 2 doses of IV ertapenem both tomorrow 04/20/2022 and 04/21/2022. I suspect he will be than on an oral antibiotic with follow-up with the wound care clinic next week. 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 (3) Lymphedema: Status: Acute Problem details: Severe - he needs weight loss and lymphedema care. (4) Noncompliance: Status: Acute Problem details: complicating care DS: Summary Hospital Course Hospital Course: HOSPITALIST DISCHARGE SUMMARY ATTENDING PHYSICIAN: Lucila Ricardo MD FINAL DIAGNOSIS: Left leg cellulitis Gram-negative rods on wound culture Morbid obesity Noncompliance Type 2 diabetes HOSPITAL FOLLOWUP ISSUES: Outpatient IV antibiotics planned for 04/20 and 04/21 - 1 g ertapenem each day. Evaluate on 04/21 for oral antibiotics. Wound care appointment made REFERRALS WHILE ADMITTED: Wound care REFERRALS AFTER DISCHARGE: Wound care BRIEF HOSPITAL COURSE: Prabhu presented with acute on chronic cellulitic changes of the left leg. He has chronic lymphedema changes bilaterally. He is a type 2 diabetic. He is noncompliant and morbidly obese. We noted his white blood cell count was quite elevated as was his CRP. We started IV ertapenem and received 2 doses. Nice response. He also got 1 dose of IV vancomycin until we understood that his wound culture was growing Gram-negative rods. He had decent blood sugars despite being a type 2 non compliant diabetic while here. He had difficult interactions with staff. He angers easily. Mid day on 04/19/2022 we felt Prabhu had met discharge criteria and could return as an outpatient for continued IV antibiotics. SUBSTANTIVE NOTATIONS ON IMAGING, LAB, MICROBIOLOGY/PATHOLOGY STUDIES: Afebrile Normal blood pressure, pulse, respiratory rate. On room air. Ambulating without assistance in the room CBC reflects a white blood cell count that is down trending from 19.3 to 12.9 today Potassium was mildly elevated this morning. His sodium had improved. Glucose is 118 and his kidney function was normal. CRP was stable. Procalcitonin was down trending. Left lower extremity DVT study was negative Blood cultures are negative Gram-negative rods growing from wound culture DISCHARGE MEDICATIONS: See Reconciled list - SIGNIFICANT CHANGES: No changes REVIEW OF SYSTEMS No new chest pain or dyspnea Pain controlled No voiding difficulties Tolerating diet challenge PHYSICAL EXAM: CONSTITUTIONAL: Alert, mildly argumentative VITAL SIGNS: see record. HEENT: Normocephalic, atraumatic. PERRL, EOMI, conjunctivae pink, no scleral icterus. Ears and nose externally normal. Pharynx normal. NECK: No JVD. No carotid bruit, no thyromegaly, no adenopathy. CHEST: Clear to auscultation bilaterally. HEART: S1 and S2 normal. Edema ABDOMEN: Soft, nontender. Normal bowel sounds. MUSCULOSKELETAL: Large edematous lymphedemic legs. His left leg, looks improved from yesterday. There has been slow resolution of the erythema and tenderness. Both Merary for wound care and I evaluated the leg at the same time. NEURO: Cranial nerves intact. Grossly intact. No asymmetric findings. SKIN: No rashes, petechiae, concerning changes PSYCHIATRIC: Mood euthymic. DISPOSITION: Home Time spent on discharge 37 minutes. Time Spent with Patient Time attestation: Total time spent providing and/or coordinating discharge services: Exam Const: Vital Signs, click to edit/add: Vital Signs - 24 hr 04/18/22 19:00 04/18/22 23:00 04/18/22 23:00 Temperature 97.6 F Pulse Rate [Pulse Oximeter] 81 81 Respiratory Rate 18 18 18 Blood Pressure [Le ft Arm] 120/59 L Pulse Oximetry 94 94 Oxygen Delivery Me thod Room Air Room Air 04/18/22 23:00 04/19/22 03:00 04/19/22 13:00 Temperature 97.7 F 98.1 F 98.1 F Pulse Rate [Pulse Oximeter] 78 72 Respiratory Rate 18 18 18 Blood Pressure [Le ft Arm] 126/62 138/80 Pulse Oximetry 96 93 Oxygen Delivery Me thod Room Air Room Air DS: Data Data Completed and Pending Labs on day of discharge: Labs from last 24 hours 04/19/22 04/19/22 04/19/22 07:44 07:44 07:44 WBC 12.90 H RBC 4.83 Hgb 14.5 Hct 43.1 MCV 89 MCH 30 MCHC 34 Plt Count 230 VBG pH 7.404 VBG pCO2 40 VBG pO2 37.2 VBG HCO3 25 Sodium 136 Potassium 5.2 H Chloride 105 Carbon Dioxide 21 BUN 24 Creatinine 1.1 Estimated Creat Clear 48.59 Estimated GFR 70 Glucose 118 H Lactate 1.4 Calcium 8.5 C-Reactive Protein 7.3 H Procalcitonin 0.20 Prolactin Baseline 04/18/22 04/18/22 04/18/22 07:30 07:30 07:30 WBC RBC Hgb Hct MCV MCH MCHC Plt Count VBG pH VBG pCO2 VBG pO2 VBG HCO3 Sodium Potassium Chloride Carbon Dioxide BUN Creatinine Estimated Creat Clear Estimated GFR Glucose Lactate 1.2 Calcium C-Reactive Protein Procalcitonin 0.31 Prolactin Baseline Cancelled Preliminary micro results at discharge 04/17/22 08:10 Wound Culture - Preliminary Ankle Left Gram negative tequila Gram negative tequila#2 04/17/22 07:40 Blood Culture - Preliminary Blood NO GROWTH AFTER 48 HOURS Discharge Plan Discharge Disposition: Home, Self-Care Date of Admission: 04/17/22 13:00 Attending Provider on Discharge: Lucila Ricardo Consulting Providers: Kristel Sevilla Primary Care Provider: Provider,Not a Local Condition: Unchanged Anticipated Discharge Date/Time: 04/19/22 12:53 Discharge Medications: Continued furosemide [Lasix] 20 mg tablet 20 mg PO DAILY metoprolol succinate [Toprol XL] 25 mg tablet extended release 24 hr 50 mg PO DAILY Discharge Orders: Discharge Order (Routine); Ordered 04/19/22 Ordered By: Lucila Ricardo Patient Education: Cellulitis (GEN) Additional Instructions: come in for IV antibiotics @ 0800 on 04/20 and 04/21 at the hospital. stop in at the front office director Activity Level: Activity as Tolerated Discharge Diet: Diabetic Follow Up Appointments: Lucila Ricardo MD [Staff Physician] - 04/20/22 (8 am - ertapenem 1 gram IV both 04/20 and 04/21 In the Med Surg department.) Provider,Not a Local [Primary Care Provider] - 04/26/22 (wound care Friday04/26/22 with Merary ) Laine Nair DO [Staff Physician] - 05/20/22 11:00 am Forms: [employer] Info Instructions
--- NOTE | 2022-04-19 15:57 | PC.NURSE ---
Nursing Care Notes: [phone] Pt this shift calm and cooperative with fist set of vital signs. After rounding doctor visited pt, pt was verbally and physically upset. Pt used profanity and name calling when talking about the rounding doctor, tensing up, taking his fist and hitting it against the palm of his other hand in frustration, non threatening to advertising copy writer. Rn Surgical and another staff attempted to calm pt down with therapeutic communication and listening. Every time advertising copy writer went into the room for cares or medication administration, pt would begin talking about the situation with the doctor, repeating the same things. Rn Surgical asked pt what he does at home to help when stressed, and pt said watch funny movies. Rn Surgical encouraged pt to reach out to patient advocate about his concerns, and then to put feet up to relax and watch a funny movie. Rn Surgical brought in cake and ice cream for pt per request. Throughout the day, was more calm and able to relax in bed, but continues to talk about the situation. Pt states he is praying about it and trying to get past it. Pt up independently in room, voiding frequently. L leg reddened with blisters, receding from outline. No c/o pain. Pt is discharging today but is instructed to come back 04/20 and 04/21 as outpatient for antibiotic therapy. Per MD, ok to leave saline lock in place. Son coming to roller picker after 1600. Report given to next nurse with discharge instructions and papers.
--- NOTE | 2022-04-19 17:23 | PC.NURSE ---
PATIENT DISCHARGED HOME, PATIENT VERBALIZED UNDERSTANDING OF DISCHARGE INFORMATION AND HAD NO FURTHER QUESTIONS AT THIS TIME, PLANS TO RETURN IN THE MORNING FOR ABX INFORMATION, LEFT VIA WHEELCHAIR AROUND [phone].
== END 2022-04-19 17:15 | disposition home or self-care (01) ==
LOC: ED 08:43 → MEDSURG 13:00
PROVIDERS: Emergency Medicine; Admitting Provider Family Medicine; Emergency Provider Family Medicine; Visit Provider Family Medicine
DX: L03.116 Cellulitis of left lower limb (principal); I89.0 Lymphedema, not elsewhere classified; Z91.199 Patient's noncompliance with other medical treatment and regimen due to unspecified reason; B95.1 Streptococcus, group B, as the cause of diseases classified elsewhere; B96.4 Proteus (mirabilis) (morganii) as the cause of diseases classified elsewhere; B96.89 Other specified bacterial agents as the cause of diseases classified elsewhere; R78.81 Bacteremia; Z16.29 Resistance to other single specified antibiotic; Z88.0 Allergy status to penicillin; E11.622 Type 2 diabetes mellitus with other skin ulcer; E66.01 Morbid (severe) obesity due to excess calories; Z68.43 Body mass index [BMI] 50.0-59.9, adult; R79.82 Elevated C-reactive protein (CRP); D72.829 Elevated white blood cell count, unspecified; E87.5 Hyperkalemia; L53.9 Erythematous condition, unspecified; I10 Essential (primary) hypertension; R60.0 Localized edema; Z86.79 Personal history of other diseases of the circulatory system; Z87.891 Personal history of nicotine dependence; I87.2 Venous insufficiency (chronic) (peripheral); L97.329 Non-pressure chronic ulcer of left ankle with unspecified severity; L97.319 Non-pressure chronic ulcer of right ankle with unspecified severity; L97.919 Non-pressure chronic ulcer of unspecified part of right lower leg with unspecified severity; I83.019 Varicose veins of right lower extremity with ulcer of unspecified site; I83.222 Varicose veins of left lower extremity with both ulcer of calf and inflammation; L97.229 Non-pressure chronic ulcer of left calf with unspecified severity; R26.2 Difficulty in walking, not elsewhere classified; B35.1 Tinea unguium; Z20.822 Contact with and (suspected) exposure to COVID-19; M79.605 Pain in left leg
CPT/HCPCS: 36415; 80048; 80053; 80061; 82330; 82803; 82962; 83036; 83605; 83735; 83880; 84145; 84146; 84443; 84550; 85025; 85027; 86140; 87040; 87070; 87186; 87635; 93971; 96365; 96366; 96367; 96372; 96375; 96376; 97161; 99284; A9270; G0378; G0379; J0696; J1335; J1650; J1940; J3370; J7050; J7120

== ENCOUNTER 2022-04-22 08:10 | Outpatient (RCR) | payer MEDICARE, SELFPAY ==
[2022-04-20 08:50] VITALS: BP 144/98; PULSE 77; RESP 20; TEMP 36.7; O2SAT 98
[2022-04-20] MEDS: ERTAPENEM 1 GM in 0.9 % SODIUM CHLORIDE Mini-bag 100 ML IVPB (09:05)
[2022-04-20] MEDS: 0.9 % SODIUM CHLORIDE 250 ml IV (09:05)
[2022-04-20 09:33] LABS: Hematocrit 46.6 % (37.0-53.0); Hemoglobin* 15.7 gm/dL (13.5-17.5); Mean Corpuscular HGB Conc 34 gm/dL (32-36); Mean Corpuscular Hemoglobin 30 pg (26-34); Mean Corpuscular Volume 88 fL (80-100); Platelet Count* 263 K/uL (140-440); Red Blood Count 5.29 m/uL (4.30-5.90); White Blood Count* 10.52 K/uL (4.50-11.00)
[2022-04-20 09:34] LABS: Slide Review Reflex No
[2022-04-20 09:45] VITALS: BP 172/109; PULSE 75; RESP 20; TEMP 36.7; O2SAT 98
[2022-04-20 09:46] LABS: Chloride* 104 mmol/L (96-114); Potassium* 3.7 mmol/L (3.6-5.1); Sodium* 139 mmol/L (135-149)
[2022-04-20 09:48] LABS: Creatinine* 1.2 mg/dL (0.5-1.5); Estimated Glomerular Filt Rate 63 ml/min
[2022-04-20] MEDS: SODIUM CHLORIDE 0.9 % (FLUSH) 10 ML SYRINGE 5 ML IVF (09:48)
[2022-04-20 09:49] LABS: Blood Urea Nitrogen* 24 mg/dL (7-30); Carbon Dioxide* 27 mmol/L (20-32); Glucose* 115 mg/dL (60-115)
[2022-04-20 09:50] LABS: Calcium* 8.9 mg/dL (8.4-10.6)
[2022-04-20 09:52] LABS: C Reactive Protein* 5.4 mg/dL (0.5-1.0)
--- NOTE | 2022-04-20 10:35 | PC.NURSE ---
Pt arrived for infusion @ 0815. Infusion and labs complete. Dr. Ricardo discussed labs, medication, and dressing with patient and keno writer/runner. Dressing changed on left calf and compression sleeve and KAYLIN replaced on left leg. Educated son on proper cleansing and dressing to increased wound healing. Pt DC'd with IV in left forearm to return Friday04/21/22 for antibiotic infusion @0800.
[2022-04-21 08:15] VITALS: BP 174/97; PULSE 77; RESP 20; TEMP 36.8; O2SAT 97
[2022-04-21] MEDS: ERTAPENEM 1 GM in 0.9 % SODIUM CHLORIDE Mini-bag 100 ML IVPB (08:24)
[2022-04-21] MEDS: 0.9 % SODIUM CHLORIDE 250 ml IV (08:25)
[2022-04-21] MEDS: SODIUM CHLORIDE 0.9 % (FLUSH) 10 ML SYRINGE 5 ML IVF (08:25)
[2022-04-22 08:30] VITALS: BP 171/85; PULSE 82; RESP 20; TEMP 36.8; O2SAT 97
[2022-04-22] MEDS: ERTAPENEM 1 GM in 0.9 % SODIUM CHLORIDE Mini-bag 100 ML IVPB (08:41)
[2022-04-22] MEDS: 0.9 % SODIUM CHLORIDE 250 ml IV (08:42)
--- NOTE | 2022-04-22 10:50 | PC.NURSE ---
Pt arrived for infusion @ 0830. Infusion and labs complete. Dr. Ricardo discussed labs, medication, and dressing with patient and sons. Pt's IV removed in left forearm intact. VSS.
== END 2022-04-22 23:15 | disposition home or self-care (01) ==
LOC: MS OUT 08:10
PROVIDERS: Visit Provider Family Medicine
DX: L03.116 Cellulitis of left lower limb (principal)
CPT/HCPCS: 36415; 80048; 85027; 86140; 96365; 99211; J1335; J7050

== ENCOUNTER 2022-04-26 07:58 | Outpatient (CLI) | payer MEDICARE, SELFPAY | END 2022-04-26 07:59 | disposition home or self-care (01) | PROVIDERS: Visit Provider Physician Assistant Surgical | DX: I87.313 Chronic venous hypertension (idiopathic) with ulcer of bilateral lower extremity (principal); E11.622 Type 2 diabetes mellitus with other skin ulcer; I89.0 Lymphedema, not elsewhere classified; L97.825 Non-pressure chronic ulcer of other part of left lower leg with muscle involvement without evidence of necrosis; L97.212 Non-pressure chronic ulcer of right calf with fat layer exposed | CPT/HCPCS: 11042; 11045; 99213 ==

== ENCOUNTER 2022-05-03 09:29 | Outpatient (CLI) | payer MEDICARE, SELFPAY | END 2022-05-03 09:30 | disposition home or self-care (01) | LOC: WOUND 09:30 | PROVIDERS: Visit Provider Physician Assistant Surgical | DX: I87.313 Chronic venous hypertension (idiopathic) with ulcer of bilateral lower extremity (principal); E11.622 Type 2 diabetes mellitus with other skin ulcer; L97.822 Non-pressure chronic ulcer of other part of left lower leg with fat layer exposed; L97.212 Non-pressure chronic ulcer of right calf with fat layer exposed; I89.0 Lymphedema, not elsewhere classified; I87.2 Venous insufficiency (chronic) (peripheral) | CPT/HCPCS: 11042; 11045 ==

== ENCOUNTER 2022-05-10 09:37 | Outpatient (CLI) | payer MEDICARE, SELFPAY | END 2022-05-10 09:38 | disposition home or self-care (01) | LOC: WOUND 09:37 | PROVIDERS: Visit Provider Physician Assistant Surgical | DX: I87.313 Chronic venous hypertension (idiopathic) with ulcer of bilateral lower extremity (principal); L97.822 Non-pressure chronic ulcer of other part of left lower leg with fat layer exposed; L97.812 Non-pressure chronic ulcer of other part of right lower leg with fat layer exposed; I89.0 Lymphedema, not elsewhere classified | CPT/HCPCS: 11042; 11045 ==

== ENCOUNTER 2022-05-17 09:57 | Outpatient (CLI) | payer MEDICARE, SELFPAY | END 2022-05-17 09:58 | disposition home or self-care (01) | LOC: WOUND 09:57 | PROVIDERS: Visit Provider Physician Assistant Surgical | DX: I87.313 Chronic venous hypertension (idiopathic) with ulcer of bilateral lower extremity (principal); L97.822 Non-pressure chronic ulcer of other part of left lower leg with fat layer exposed; L97.212 Non-pressure chronic ulcer of right calf with fat layer exposed | CPT/HCPCS: 11042 ==

== ENCOUNTER 2022-05-21 11:35 | Outpatient (CLI) | payer MEDICARE, SELFPAY ==
[2022-05-21 13:22] LABS: Albumin* 4.4 g/dL (3.3-5.0); Chloride* 106 mmol/L (96-114); Sodium* 139 mmol/L (135-149)
[2022-05-21 13:23] LABS: Potassium* 4.6 mmol/L (3.6-5.1)
[2022-05-21 13:24] LABS: Cholesterol* 202 mg/dL (90-199); Creatinine* 0.8 mg/dL (0.5-1.5); Estimated Glomerular Filt Rate 92 ml/min
[2022-05-21 13:25] LABS: Alanine Aminotransferase* 18 U/L (4-50); Alkaline Phosphatase* 67 U/L (40-150); Aspartate Amino Transferase* 28 U/L (12-35); Bilirubin Total* 0.9 mg/dL (0.1-1.5); Blood Urea Nitrogen* 21 mg/dL (7-30); Calcium* 9.4 mg/dL (8.4-10.6); Carbon Dioxide* 24 mmol/L (20-32); Glucose* 143 mg/dL (60-115); Total Protein* 8.1 g/dL (6.0-8.3); Triglycerides* 158 mg/dL (40-149)
[2022-05-21 13:26] LABS: HDL Cholesterol* 63 mg/dL (>=40); LDL Cholesterol Calculated 107 mg/dL (<100)
[2022-05-21 13:37] LABS: Creatinine Urine 74.6 mg/dL
[2022-05-21 13:43] LABS: Microalbumin Creatinine Ratio 90 mg/g (0-30); Microalbumin Urine 7 mg/dL
[2022-05-21 14:15] LABS: Vitamin B12* 268 pg/mL (243-894)
[2022-05-21 14:38] LABS: Free T4 Free Thyroxine* 1.27 ng/dL (0.70-1.85)
== END 2022-05-21 11:36 | disposition home or self-care (01) ==
PROVIDERS: Visit Provider Family Medicine
DX: E11.9 Type 2 diabetes mellitus without complications (principal); I10 Essential (primary) hypertension; R53.83 Other fatigue; E66.01 Morbid (severe) obesity due to excess calories; L03.116 Cellulitis of left lower limb
CPT/HCPCS: 80053; 80061; 82043; 82570; 82607; 83735; 84439; 84443

== ENCOUNTER 2022-05-24 09:43 | Outpatient (CLI) | payer MEDICARE, SELFPAY | END 2022-05-24 09:44 | disposition home or self-care (01) | LOC: WOUND 09:43 | PROVIDERS: Visit Provider Physician Assistant Surgical | DX: I87.312 Chronic venous hypertension (idiopathic) with ulcer of left lower extremity (principal); L97.822 Non-pressure chronic ulcer of other part of left lower leg with fat layer exposed; E11.622 Type 2 diabetes mellitus with other skin ulcer; I89.0 Lymphedema, not elsewhere classified | CPT/HCPCS: 11042 ==

== ENCOUNTER 2022-05-31 07:56 | Outpatient (CLI) | payer MEDICARE, SELFPAY | END 2022-05-31 07:57 | disposition home or self-care (01) | LOC: WOUND 07:57 | PROVIDERS: Visit Provider Physician Assistant Surgical | DX: I87.312 Chronic venous hypertension (idiopathic) with ulcer of left lower extremity (principal); E11.622 Type 2 diabetes mellitus with other skin ulcer; L97.822 Non-pressure chronic ulcer of other part of left lower leg with fat layer exposed; I89.0 Lymphedema, not elsewhere classified; Z79.84 Long term (current) use of oral hypoglycemic drugs | CPT/HCPCS: 11042 ==

== ENCOUNTER 2022-06-07 10:39 | Outpatient (CLI) | payer MEDICARE, SELFPAY | END 2022-06-07 10:40 | disposition home or self-care (01) | LOC: WOUND 10:39 | PROVIDERS: Visit Provider Physician Assistant Surgical | DX: I87.312 Chronic venous hypertension (idiopathic) with ulcer of left lower extremity (principal); I87.2 Venous insufficiency (chronic) (peripheral); L97.822 Non-pressure chronic ulcer of other part of left lower leg with fat layer exposed; I89.0 Lymphedema, not elsewhere classified | CPT/HCPCS: 11042 ==

== ENCOUNTER 2022-06-14 08:43 | Outpatient (CLI) | payer MEDICARE, SELFPAY | END 2022-06-14 08:44 | disposition home or self-care (01) | LOC: WOUND 08:43 | PROVIDERS: Visit Provider Physician Assistant Surgical | DX: I87.312 Chronic venous hypertension (idiopathic) with ulcer of left lower extremity (principal); L97.822 Non-pressure chronic ulcer of other part of left lower leg with fat layer exposed; I89.0 Lymphedema, not elsewhere classified | CPT/HCPCS: 11042 ==

== ENCOUNTER 2022-06-28 09:52 | Outpatient (CLI) | payer MEDICARE, SELFPAY | END 2022-06-28 09:53 | disposition home or self-care (01) | LOC: WOUND 09:52 | PROVIDERS: Visit Provider Physician Assistant Surgical | DX: E11.622 Type 2 diabetes mellitus with other skin ulcer (principal); I87.312 Chronic venous hypertension (idiopathic) with ulcer of left lower extremity; L97.822 Non-pressure chronic ulcer of other part of left lower leg with fat layer exposed; I89.0 Lymphedema, not elsewhere classified | CPT/HCPCS: 99212 ==

== ENCOUNTER 2022-12-20 11:20 | Outpatient (CLI) | payer MEDICARE, SELFPAY | END 2022-12-20 11:21 | disposition home or self-care (01) | LOC: NFLDREF 12-22 07:40 | PROVIDERS: PCP Family Medicine; Referring Provider Family Medicine; Visit Provider Family Medicine | DX: I10 Essential (primary) hypertension (principal); E87.5 Hyperkalemia | CPT/HCPCS: 80048; 83735 ==

== ENCOUNTER 2023-04-03 10:22 | Outpatient (CLI) | payer MEDICARE, SELFPAY | END 2023-04-03 10:23 | disposition home or self-care (01) | LOC: FRMREF 10:30 | PROVIDERS: PCP Family Medicine; Visit Provider Family Medicine | DX: I10 Essential (primary) hypertension (principal) | CPT/HCPCS: 80053 ==

== ENCOUNTER 2023-09-19 11:40 | Outpatient (CLI) | payer MEDICARE, SELFPAY ==
--- OUTSIDE RECORDS SUMMARY | 2023-09-19 11:43 | XMS_ITS | Clinical Summary ---
Author Organization [facility] Address [place], [place] [address] Care Team Providers Care Stock Pitcher Name Role Phone Paras Lorenz MD Primary Care Provider + Allergies Active Allergy Reactions Criticality Noted Date Comments Penicillins Edema 02/20/2012 Medications No known medications Active Problems Problem Noted Date Diagnosed Date Hypertension 08/13/2012 Morbid obesity 08/13/2012 Social History Tobacco Use Types Packs/Day Years Used Date Smoking Tobacco: Former Cigarettes Q uit: 12/28/2015 Smokeless Tobacco: Never Tobacco Cessation:Ready to Q uit: No; Counseling Given: Yes Comments:10 per day Alcohol Use Standard Drinks/Week Comments Not Asked 0 (1 standard drink = 0.6 oz pur e alcohol) Social Connections Answer Date Recorded Frequency of Communication with Friends and Fami ly Not on file 04/21/2021 Financial Resource Strain Answer Date R ecorded Difficulty of Paying Living Expenses Not on file 04/21/2021 Difficulty of Paying Living Expenses Not on file 04/21/2021 Sex and Gender Information Value Date Recorded Sex Assigned at Not on file Gender Identity Not on file Sexual Orientation Not on file Obstetrics History Last Filed Vital Signs Vital Sign Reading Time Taken Comments Blood Pressure 158/96 12/27/2020 10:05 AM CDT Pulse 87 12/27/2020 10:05 AM CDT Temperature 36.2 ??C (97.2 ??F) 04/17/2020 1 1:29 PM YOUTH SPECIALIST Respiratory Rate 20 04/17/2020 11:2 9 PM YOUTH SPECIALIST Oxygen Saturation 95% 12/27/2020 10: 05 AM CDT Inhaled Oxygen Concentration - - Weight 161.9 kg (356 lb 14.4 oz) 2020 10:05 AM CDT Height 160 cm (5' 2.99) 12/27/2020 10: 05 AM CDT Body Mass Index 63.24 12/27/2020 10:05 AM CDT Plan of Treatment Health Maintenance Due Date Last Done Comments Tdap 1958 Depression screening for age 12+ 1959 Hepatitis C screening for age 18-79 1965 Tetanus booster 1967 Zoster (shingles) series for age 50+ (1 of 2) 02/14/19 97 Medicare Wellness for age 65+ 02/15/2012 Pneumococcal series for age 65+ (1 of 1 - PCV) 012 BMI (ht and wt on same day) for age 18+ 12/27/2021 0 12/27/2020 COVID-19 vaccine series ( - 2022- season) 3 Influenza for age 65+ 12/21/2023 Care Teams Stock Pitcher Relationship Specialty Start Date End Date Paras Lorenz MD PCP - General Family Practice 04/17/20
--- OUTSIDE RECORDS SUMMARY | 2023-09-19 11:43 | XMS_ITS | Clinical Summary ---
Author Organization [facility] Address [address] [place] [place] [address] Care Team Providers Care Sofa Cover Inspector Name Role Phone Unavailable Primary Care Provider Unavailabl e Allergies Active Allergy Reactions Criticality Noted Date Comments Penicillins 12/23/2020 Reports he had throat swelling Social History Tobacco Use Types Packs/Day Years Used Date Smoking Tobacco: Never Assessed Adolescent Education Answer Date Record ed Getting School Help Needed Not on file 01/11 Sex and Gender Information Value Date Recorded Sex Assigned at Not on file Gender Identity Not on file Sexual Orientation Not on file Last Filed Vital Signs Vital Sign Reading Time Taken Comments Blood Pressure 151/97 12/24/2020 1:30 AM CDT Pulse 100 12/24/2020 1:30 AM CDT Temperature 36.8 ??C (98.3 ??F) 12/23/2020 10:07 PM C DT Respiratory Rate 25 12/24/2020 1:30 AM CDT Oxygen Saturation 97% 12/24/2020 1:30 AM CDT Inhaled Oxygen Concentration - - Weight 136.1 kg (300 lb) 12/23/2020 10:07 PM CDT Height - - Body Mass Index - - Plan of Treatment Health Maintenance Due Date Last Done Comments ADVANCE CARE PLANNING 1945 ANNUAL REVIEW OF HM ORDERS 1945 HEPATITIS C SCREENING 1965 DTAP/TDAP/TD IMMUNIZATION (1 - Tdap) 02/15/1972 LIPID 1987 ZOSTER IMMUNIZATION (1 of 2) 1997 RSV VACCINE ( & 60+ ) (1 - 1-dose 60+ series) 2007 FALL RISK ASSESSMENT 02/15/2012 MEDICARE ANNUAL WELLNESS VISIT 02/15/2012 Pneumococcal Vaccine: 65+ Ye ars (1 of 1 - PCV) 02/15/2012 COVID-19 Vaccine ( - 2022-2 4 season) 2022 PHQ-2 (once per calendar year) 2023 INFLUENZA VACCINE (Season Ended) 2023 GLUCOSE 12/25/2023 12/24/2020 HPV IMMUNIZATION Aged Out No longer e ligible based on patient's age to complete this topic IPV IMMUNIZATION Aged Out No longer e ligible based on patient's age to complete this topic MENINGITIS IMMUNIZATION Aged Out No l onger eligible based on patient's age to complete this topic RSV MONOCLONAL ANTIBODY Aged Out No l onger eligible based on patient's age to complete this topic Procedures Procedure Name Priority Date/Time Associated Diagnosis Comments COMPREHENSIVE METABOLIC PANEL STAT 12/24/2020 12:16 AM CDT from Last 3 Months or Most Recently Relevant to Health Maintenance Results * (ABNORMAL) Comprehensive metabolic panel (12/24/2020 12:16 AM CDT) Sodium 133 133 - 144 mmol/L 12/24/2020 12:51 AM CDT LABORATORY Potassium 4.3 3.4 - 5.3 mmol/L 12/24/2020 12:51 AM CDT LABORATORY Chloride 104 94 - 109 mmol/L 12/24/2020 12:51 AM CDT LABORATORY Carbon Dioxide (CO2) 26 20 - 32 mmol/L 12/24/2020 12:51 AM CDT LABORATORY Anion Gap 3 3 - 14 mmol/L 12/24/2020 12:51 AM CDT LABORATORY Urea Nitrogen 14 7 - 30 mg/dL 12/24/2020 12:51 AM CDT LABORATORY Creatinine 0.75 0.66 - 1.25 mg/dL 12/24/2020 12:51 AM CDT LABORATORY Calcium 8.8 8.5 - 10.1 mg/dL 12/24/2020 12:51 AM CDT LABORATORY Glucose 149(H) 70 - 99 mg/dL 12/24/2020 12:51 AM CDT LABORATORY Alkaline Phosphatase 68 40 - 150 U/L 12/24/2020 12:51 AM CDT [facility] AST 20 0 - 45 U/L 12/24/2020 12:51 AM CDT [facility] ALT 24 0 - 70 U/L 12/24/2020 12:51 AM CDT [facility] Protein Total 7.9 6.8 - 8.8 g/dL 12/24/2020 12:51 AM CDT [facility] Albumin 3.3(L) 3.4 - 5.0 g/dL 12/24/2020 12:51 AM CDT [facility] Bilirubin Total 0.3 0.2 - 1.3 mg/dL 12/24/2020 12:51 AM CDT [facility] GFR Estimate >90 >60 mL/min/1.7 3m2 12/24/2020 12:51 AM CDT [facility] Comment:As of October 29, 2020, eGFR is calculated by the CKD-EPI creatinine equation, without race adjustment. eGFR can be influenced by muscle mass, exercise, and diet. The reported eGFR is an estimation only and is only applicable if the renal function is stable. Blood BLOOD SPECIMEN / Unknown Venipuncture / Unknown 12/24/2020 12:16 AM CDT 12/24/2020 12:29 AM CDT Solo Frost MD LAB - BLOOD ORDERABL ES LABORATORY [facility] Acute Care Lab [address] Lab (1st floor, no room number) [place] [address], [facility] [phone] from Last 3 Months or Most Recently Relevant to Health Maintenance
--- OUTSIDE RECORDS SUMMARY | 2023-09-19 11:43 | XMS_ITS | Referral Summary ---
Author Organization [facility] [place] Address [facility] [facility] [place] [address] Care Team Providers Care People Manager Name Role Phone Unavailable Primary Care Provider [...] Mass Index - - Plan of Treatment Not on file Procedures Procedure Name Priority Date/Time Associated Diagnosis Comments COMPREHENSIVE METABOLIC PANEL STAT 12/24/2020 12:16 AM CDT from Last 3 Months or Most Recently Relevant to Health Maintenance Results * (ABNORMAL) Comprehensive metabolic panel (12/24/2020 12:16 AM CDT) Sodium 133 133 - 144 mmol/L 12/24/2020 12:51 AM CDT [facility] Potassium 4.3 3.4 - 5.3 mmol/L 12/24/2020 12:[address] [facility] Chloride 104 94 - 109 mmol/L 12/24/2020 12:[address] [facility] Carbon Dioxide (CO2) 26 20 - 32 mmol/L 12/24/2020 12:[address] [facility] Anion Gap 3 3 - 14 mmol/L 12/24/2020 12:[address] [facility] Urea Nitrogen 14 7 - 30 mg/dL 12/24/2020 12:[address] [facility] Creatinine 0.75 0.66 - 1.25 mg/dL 12/24/2020 12:[address] [facility] Calcium 8.8 8.5 - 10.1 mg/dL 12/24/2020 12:[address] [facility] Glucose 149(H) 70 - 99 mg/dL 12/24/2020 12:[address] [facility] Alkaline Phosphatase 68 40 - 150 U/L 12/24/2020 12:[address] [facility] AST 20 0 - 45 U/L 12/24/2020 12:[address] [facility] ALT 24 0 - 70 U/L 12/24/2020 12:[address] [facility] Protein Total 7.9 6.8 - 8.8 g/dL 12/24/2020 12:[address] [facility] Albumin 3.3(L) 3.4 - 5.0 g/dL 12/24/2020 12:[address] [facility] Bilirubin Total 0.3 0.2 - 1.3 mg/dL 12/24/2020 12:[address] [facility] GFR Estimate >90 >60 mL/min/1.7 3m2 12/24/2020 12:[address] [facility] Comment:As of October 29, 2020, eGFR [...] Frost MD LAB - BLOOD ORDERABL ES [facility] Acute Care Lab [address] (1st floor, no room number) [place] [address], [facility] [phone] from Last 3 Months or Most Recently Relevant to Health Maintenance
== END 2023-09-19 11:41 | disposition home or self-care (01) ==
PROVIDERS: PCP Family Medicine; Visit Provider Family Medicine
DX: E11.29 Type 2 diabetes mellitus with other diabetic kidney complication (principal); I10 Essential (primary) hypertension; E78.2 Mixed hyperlipidemia; Z13.21 Encounter for screening for nutritional disorder; Z12.5 Encounter for screening for malignant neoplasm of prostate; Z11.59 Encounter for screening for other viral diseases; Z79.84 Long term (current) use of oral hypoglycemic drugs; R80.9 Proteinuria, unspecified
CPT/HCPCS: 80053; 80061; 82043; 82570; 82607; 86803; G0103

== ENCOUNTER 2023-11-07 12:21 | Emergency (ER) | payer MEDICARE, SELFPAY ==
[2023-11-07 12:28] VITALS: BP 119/88; PULSE 74; RESP 18; TEMP 36.3; O2SAT 99; BMI 45.3
--- NOTE | 2023-11-07 13:01 | CRLHL7_ITS ---
For Patients: As a result of the Century Cures Act, medical imaging exams and procedure reports are released immediately into your electronic medical record. You may view this report before your referring provider. If you have questions, please contact your health care provider. INDICATION: Sialoadenitis/abscess. TECHNIQUE: CT soft tissue of the neck was acquired without contrast. COMPARISON: None. FINDINGS: Oral cavity, nasopharynx, oropharynx, hypopharynx, larynx and subglottic trachea as imaged show no discrete mucosal lesion. No retropharyngeal fluid or suspicious fluid collection elsewhere in the neck. Subcentimeter short axis cervical nodes are nonspecific. Parotid and submandibular glands: Heterogeneous soft tissue mass arising from or adjacent to the left submandibular gland measures 4.2 x 3.5 cm in greatest transverse and AP dimension and demonstrates irregular borders concerning for infiltration of the platysma musculature. No discrete low-density to suggest submandibular abscess. No ductal dilatation evident. Right submandibular and bilateral parotid glands are unremarkable. Thyroid gland: Unremarkable. Vessels: Unremarkable noncontrast appearance. Paranasal sinuses and orbits: Atelectasis and opacification of the right maxillary sinus. Paranasal sinuses and orbits as imaged are otherwise unremarkable. Bones: No acute or suspicious osseous abnormality. Degenerative changes of the spine. Lung apices: Right upper lobe 4 mm nodule on image 82 of series 3. IMPRESSION: 1. 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 Infectious/inflammatory etiologies may be considered once malignancy is excluded. ENT consultation regarding further management recommended. 2. Nonspecific subcentimeter short axis cervical lymph nodes. 3. Right upper lobe 4 mm nodule. Further workup of submandibular mass may help guide management of this nodule. If the submandibular mass is confirmed benign, this nodule can be further evaluated with chest CT in 12 months. Dictated by Jese Dumont MD @ 11/07/2023 2:24:49 PM Please note that all CT scans at this facility use dose modulation, iterative reconstruction, and/or weight-based dosing when appropriate to reduce radiation dose to as low as reasonably achievable. Dictated by: Jese Dumont MD @ 11/07/2023 14:25:12 (Electronically Signed)
--- NOTE | 2023-11-07 13:02 | ED.GENADULT ---
HPI - General Adult General Chief complaint: Skin/Abscess/Foreign Body Stated complaint: blocked gland/swelling Time Seen by Provider: 11/07/23 12:26 History of Present Illness HPI narrative: This 78-year-old male comes in with swelling in his left lower mandible region. He was seen in clinic a couple days ago and there was suspicion at that time of sialoadenitis. He was recommended to have a CT scan and apparently there was an appointment for this yesterday but he missed the appointment with difficulty getting here. He states that he has had swelling in his left submandibular region for more than a week. He does not report any fevers. He states that he does have a dry mouth. Related Data Previous Rx's ?Medication ?Instructions ?Recorded blood pressure monitor #1 ea 05/27/22 atorvastatin 40 mg tablet 40 mg PO QHS #90 tabs 09/19/23 bupropion HCl 150 mg 24 hr tablet, 150 mg PO QAM #90 tabs 09/19/23 extended release (Wellbutrin XL) furosemide 20 mg tablet 20 mg PO DAILY #90 tabs 09/19/23 lisinopril 10 1 tab PO DAILY #90 tabs 09/19/23 mg-hydrochlorothiazide 12.5 mg tablet metoprolol succinate 25 mg 25 mg PO QDAY #90 tabs 09/19/23 tablet,extended release 24 hr metformin 500 mg tablet,extended 500 mg PO BID #180 tabs 09/22/23 release 24 hr Allergies Allergy/AdvReac Type Severity Reaction Status Date / Time Penicillins Allergy Mild swollen Verified 11/07/23 12:37 ears Review of Systems Status of ROS: Reports: 10 or more systems reviewed and unremarkable except as noted in History and below Narrative: Constitutional: No fevers, no weight gain or loss. Eyes: No discharge. No vision changes. HENT: No congestion, no sore throat, no ear pain. Swelling in the left cheek as described above. Cardiovascular: No chest pain, no palpitations. Respiratory: No shortness of breath, no wheezes, no cough. Gastrointestinal: No abdominal pain, no vomiting, no diarrhea. Genitourinary: No dysuria, no hematuria. Musculoskeletal: Normal range of motion. Skin: No rashes, no pruritis. Neurological: No dizziness, weakness, sensory change, speech change. Endo/Heme/Allergies: No bruising or bleeding. No polydipsia. Pysch: no suicidality, no anxiety, no insomnia. All other systems reviewed and are negative. [facility] Medical History (Updated 11/07/23 @ 15:05 by Jorden Astudillo MD) Chronic ulcer of lower extremity (09/21/12) ?L97.909 - Non-pressure chronic ulcer of unspecified part of unspecified lower leg with unspecified severity (ICD-10) Herpes zoster (09/21/12) ?B02.9 - Zoster without complications (ICD-10) Malignant neoplasm of skin (09/21/12) ?C44.90 - Unspecified malignant neoplasm of skin, unspecified (ICD-10) Traumatic rupture of Achilles tendon (09/28/12) ?S86.019A - Strain of unspecified Achilles tendon, initial encounter (ICD-10) Surgical History (Updated 05/16/22 @ 10:46 by Jazlyn Ferreira ~ PSR) History of Achilles tendon repair ?Z98.890 - Other specified postprocedural states (ICD-10) H/O elbow surgery ?Z98.890 - Other specified postprocedural states (ICD-10) Family History (Updated 05/16/22 @ 10:51 by Jazlyn Ferreira ~ PSR) Mother Dementia Brother Sleep apnea Father Myocardial infarction Social History (Updated 04/07/23 @ 14:03 by Tuyet Whyte ~ CTA) Narrative: Nicotine dependence Does not drink alcohol Does not use illicit drugs What is your current living situation?: I presently have a place to live Problems where you live: no known problems In the past 12 months, utilities in danger of being shut off: no In past 12 months, lack of transportation kept you from medical appts, meetings, work, or getting things needed for daily living: no In the past 12 mos, have been you worried that your food would run out before you had money to buy more?: never true In the past 12 mos, the food you bought just didn't last and you didn't have money to buy more?: never true Highest level of school completed/degree received: some college, no degree Smoking Status: Never smoker Do you use any of these nicotine containing products: None How often do you have a drink containing alcohol: monthly or less Alcohol type: wine How often do you have six or more drinks on one occasion: Never AUDIT-C Alcohol total score: 1 Non-prescribed substance use: denies use Caffeine: Yes (coffee) How often does anyone, including family, friends and others, physically hurt you: never How often does anyone, including family, friends and others, insult or talk down to you: never How often does anyone, including family, friends and others, threaten you with harm: never How often does anyone, including family, friends and others, scream or curse at you: never Little interest or pleasure in doing things: not at all Feeling down, depressed, or hopeless: not at all service: No Exam Narrative: Exam Narrative: Constitutional: Well-developed, well-nourished, no acute distress. HEENT: Oropharynx appears normal without any prominence of Stensen's duct or sign of abscess. The left submandibular gland is markedly enlarged typical of sialoadenitis. Neck: Normal range of motion. Nontender. Supple. Heart: Intact distal pulses. Lungs: No chest discomfort. No wheezes, rhonchi, or rales. Abdomen: Nontender. Back: Normal range of motion. Extremities: Normal range of motion. No injury. Skin: Intact. No rash. Warm. No erythema or pallor. Neurologic: No altered sensation. No weakness. Alert and oriented. Psychiatric: No suicidality. No anxiety or depression. No insomnia. Nursing notes and vitals signs are reviewed. Const: Vital Signs, click to edit/add: Vital Signs - 24 hr 11/07/23 12:28 Temperature 97.4 F L Pulse Rate [Pulse Oximeter] 74 Respiratory Rate 18 Blood Pressure [Ri ght Upper Arm] 119/88 Pulse Oximetry 99 Oxygen Delivery Me thod Room Air Course Vital Signs Vital signs: Initial Vital Signs Temperature 97.4 F L 11/07/23 12:28 Temperature Source Temporal Artery Scan 11/07/23 12:28 Pulse Rate 74 11/07/23 12:28 Respiratory Rate 18 11/07/23 12:28 Blood Pressure 119/88 11/07/23 12:28 Blood Pressure Mean 98 11/07/23 12:28 Blood Pressure Position Sitting 11/07/23 12:28 Pulse Oximetry 99 11/07/23 12:28 Oxygen Delivery Method Room Air 11/07/23 12:28 Vital Signs Temperature 97.4 F L 11/07/23 12:28 Pulse Rate 74 11/07/23 12:28 Respiratory Rate 18 11/07/23 12:28 Blood Pressure 119/88 11/07/23 12:28 Pulse Oximetry 99 11/07/23 12:28 Oxygen Delivery Method Room Air 11/07/23 12:28 Temperature 97.4 F L 11/07/23 12:28 Pulse Rate 74 11/07/23 12:28 Respiratory Rate 18 11/07/23 12:28 Blood Pressure 119/88 11/07/23 12:28 Pulse Oximetry 99 11/07/23 12:28 Oxygen Delivery Method Room Air 11/07/23 12:28 Medical Decision Making MDM Narrative Medical decision making narrative: This patient presents for evaluation of a growing mass in the left mandible and neck region. A CT scan of the soft tissue of the neck is obtained and was done without contrast because the patient is kidney function is borderline. Radiology report indicates a mass that is irregular and suspicious for carcinoma or lymphoma. It is recommended that the patient have a follow-up with ear nose and throat clinic to further characterize the nature of this mass. The patient does not have any airway compromise and is not having so much pain except when this mass is being manipulated. I did connect with Dr. Momin who stated that he would be glad to see the patient in clinic on Friday of next week, 4 days from now, for further evaluation and treatment. Lab Data Labs: Lab Results 11/07/23 11/07/23 Range/Units 13:10 13:20 WBC 13.34 H (4.50-11.00) K/uL RBC 5.27 (4.30-5.90) m/uL Hgb 16.2 (13.5-17.5) gm/dL Hct 47.1 (37.0-53.0) % MCV 89 (80-100) fL MCH 31 (26-34) pg MCHC 34 (32-36) gm/dL RDW Coeff of Alena 13.1 (11.5-15.5) % Plt Count 255 (140-440) K/uL Neut % (Auto) 74.8 H (42.0-72.0) % Lymph % (Auto) 12.4 L (20-44) % [place] % (Auto) 10.0 (0.0-11.0) % Eos % (Auto) 1.9 (0.0-7.0) % Baso % (Auto) 0.4 (0.0-3.0) % Neut # (Auto) 10.00 H (1.7-7.0) K/uL Lymph # (Auto) 1.70 (0.90-2.90) K/uL [place] # (Auto) 1.30 H (0.00-0.90) K/UL Eos # (Auto) 0.30 (0.00-0.50) K/uL Baso # (Auto) 0.10 (0.00-0.30) K/uL Abs Immat Gran (auto) 0.10 (0.00-0.30) K/uL Imm/Tot Granulo (auto) 0.5 % Sodium 130 L (135-149) mmol/L Potassium 4.5 (3.6-5.1) mmol/L Chloride 98 (96-114) mmol/L Carbon Dioxide 18 L (20-32) mmol/L Anion Gap 14 (7-15) mEq/L BUN 38 H (7-30) mg/dL Creatinine 1.7 H (0.5-1.5) mg/dL Estimated Creat Clear 27.35 Estimated GFR 41 ml/min Glucose 107 (60-115) mg/dL Calcium 9.7 (8.4-10.6) mg/dL POC Creatinine 1.8 H (0.6-1.3) mg/dl Imaging Data CT Soft Tissue Neck: Radiologist's impression: 1. 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 Infectious/inflammatory etiologies may be considered once malignancy is excluded. ENT consultation regarding further management recommended. 2. Nonspecific subcentimeter short axis cervical lymph nodes. 3. Right upper lobe 4 mm nodule. Further workup of submandibular mass may help guide management of this nodule. If the submandibular mass is confirmed benign, this nodule can be further evaluated with chest CT in 12 months. Discharge Plan Discharge Clinical Impression: Soft tissue mass Patient Disposition: Home, Self-Care Condition: Unchanged Additional Instructions: Follow-up with ear nose and throat clinic at the [facility] at 10:[address] a[address] on Friday with Dr. Momin. Return if worsening. Prescriptions: No Action (DME) blood pressure monitor Kit See Rx Instructions .Route Qty: 1 0RF Rx Instructions: test blood pressure bid metoprolol succinate 25 mg tablet extended release 24 hr 25 mg PO QDAY Qty: 90 3RF lisinopril-hydrochlorothiazide 10-12.5 mg tablet 1 tab PO DAILY Qty: 90 3RF furosemide 20 mg tablet 20 mg PO DAILY Qty: 90 3RF atorvastatin 40 mg tablet 40 mg PO QHS Qty: 90 3RF bupropion HCl [Wellbutrin XL] 150 mg tablet extended release 24 hr 150 mg PO QAM Qty: 90 3RF metformin 500 mg tablet extended release 24 hr 500 mg PO BID Qty: 180 3RF Follow Up/Referrals: Kristel Zimmerman MD [Primary Care Provider] - Stand Alone Forms: [employer] Info Instructions
--- OUTSIDE RECORDS SUMMARY | 2023-11-07 13:16 | XMS_ITS | Referral Summary ---
Author Organization [place] Address [facility] [place] [address] Care Team Providers Care Shingle Weaver Name Role Phone Unavailable Primary Care Provider [...] 5.3 mmol/L 12/24/2020 12:[address] [facility] Chloride 104 94 - 109 mmol/L 12/24/2020 12:[address] [facility] Carbon Dioxide (CO2) 26 20 - 32 mmol/L 12/24/2020 12:[address] [facility] Anion Gap 3 3 - 14 mmol/L 12/24/2020 12:[address] [facility] Urea Nitrogen 14 7 - 30 mg/dL 12/24/2020 12:[address] [facility] Creatinine 0.75 0.66 - 1.25 mg/dL 12/24/2020 12:[address] [facility] Calcium 8.8 8.5 - 10.1 mg/dL 12/24/2020 12:[address] [facility] Glucose 149(H) 70 - 99 mg/dL 12/24/2020 12:[address] [facility] Alkaline Phosphatase 68 40 - 150 U/L 12/24/2020 12:[address] [facility] AST 20 0 - 45 U/L 12/24/2020 12:[address] [facility] ALT 24 0 - 70 U/L 12/24/2020 12:[address] [facility] Protein Total 7.9 6.8 - 8.8 g/dL 12/24/2020 12:[address] [facility] Albumin 3.3(L) 3.4 - 5.0 g/dL 12/24/2020 12:[address] [facility] Bilirubin Total 0.3 0.2 - 1.3 mg/dL 12/24/2020 12:[address] [facility] GFR Estimate >90 >60 mL/min/1.7 3m2 12/24/2020 12:[address] [facility] Comment:As of October 29, 2020, eGFR [...] Frost MD LAB - BLOOD ORDERABL ES [facility] [address] (1st floor, no room number) [place] [address], [facility] [phone] from Last 3 Months or Most Recently Relevant to Health Maintenance
--- OUTSIDE RECORDS SUMMARY | 2023-11-07 13:16 | XMS_ITS | Clinical Summary ---
Author Organization [place] Address [address] [facility] [address] Care Team Providers Care Burr Sander Name Role Phone Unavailable Primary Care Provider [...] of 1 - PCV) 02/15/2012 COVID-19 Vaccine (1 - 2022-2 4 season) 2022 PHQ-2 (once per calendar year) 2023 INFLUENZA VACCINE (#1) 2023 GLUCOSE 12/25/2023 12/24/2020 HPV IMMUNIZATION Aged [...] - 14 mmol/L 12/24/2020 12:51 AM [facility] Urea Nitrogen 14 7 - 30 [...] MD LAB - BLOOD ORDERABL ES LABORATORY [facility] [address] Lab (1st floor, no room number) [place] [address], [facility] [phone] from Last 3 Months or Most Recently Relevant to Health Maintenance
--- OUTSIDE RECORDS SUMMARY | 2023-11-07 13:16 | XMS_ITS | Clinical Summary ---
Author Organization [facility] Address [place], [place] [address] Care Team Providers Care Night Stocker Name Role Phone Paras Lorenz MD Primary [...] ??C (97.2 ??F) 04/17/2020 1 1:29 PM HEARSE DRIVER Respiratory Rate 20 04/17/2020 11:2 9 PM HEARSE DRIVER Oxygen Saturation 95% 12/27/2020 10: 05 AM [...] Influenza for age 65+ 12/21/2023 Care Teams Night Stocker Relationship Specialty Start Date End Date Paras Lorenz MD PCP - General Family Practice 04/17/20
[2023-11-07 13:32] LABS: Creatinine, Point-of-Care* 1.8 mg/dl (0.6-1.3)
[2023-11-07 13:32] LABS: Basophils Percent Auto 0.4 % (0.0-3.0); Eosinophils Percent Auto 1.9 % (0.0-7.0); Hematocrit 47.1 % (37.0-53.0); Hemoglobin* 16.2 gm/dL (13.5-17.5); Immature Granulocytes Pct Auto 0.5 %; Lymphocytes Percent Auto 12.4 % (20-44); Mean Corpuscular HGB Conc 34 gm/dL (32-36); Mean Corpuscular Hemoglobin 31 pg (26-34); Mean Corpuscular Volume 89 fL (80-100); Neutrophils Percent Auto 74.8 % (42.0-72.0); Platelet Count* 255 K/uL (140-440); RDW Coefficient of Variation % 13.1 % (11.5-15.5); Red Blood Count 5.27 m/uL (4.30-5.90); White Blood Count* 13.34 K/uL (4.50-11.00)
[2023-11-07 13:44] LABS: Chloride* 98 mmol/L (96-114); Sodium* 130 mmol/L (135-149)
[2023-11-07 13:45] LABS: Potassium* 4.5 mmol/L (3.6-5.1); Slide Review Reflex No
[2023-11-07 13:47] LABS: Anion Gap 14 mEq/L (7-15); Carbon Dioxide* 18 mmol/L (20-32); Creatinine* 1.7 mg/dL (0.5-1.5); Est. Creatinine Clearance* 27.35; Estimated Glomerular Filt Rate 41 ml/min
[2023-11-07 13:48] LABS: Blood Urea Nitrogen* 38 mg/dL (7-30); Calcium* 9.7 mg/dL (8.4-10.6); Glucose* 107 mg/dL (60-115)
[2023-11-07 15:00] VITALS: BP 121/91; PULSE 71; RESP 16; O2SAT 97
== END 2023-11-07 15:16 | disposition home or self-care (01) ==
PROVIDERS: Emergency Provider Emergency Medicine Emergency Medical Services; PCP Family Medicine
DX: R22.1 Localized swelling, mass and lump, neck (principal)
CPT/HCPCS: 36415; 70490; 80048; 82565; 85025; 99283; 99284

== ENCOUNTER 2023-11-14 13:00 | Outpatient (CLI) | payer MEDICARE, SELFPAY ==
--- NOTE | 2023-11-14 | CRLHL7_ITS ---
For Patients: As a result of the Century Cures Act, medical imaging exams and procedure reports are released immediately into your electronic medical record. You may view this report before your referring provider. If you have questions, please contact your health care provider. ULTRASOUND-GUIDED LEFT CHEEK MASS ASPIRATION CLINICAL HISTORY: Large left pre mandibular soft tissue mass. COMPARISON STUDIES: CT 11/07/2023 TECHNIQUE: Real-time ultrasound with image documentation was used for targeting the left facial lesion. Ultrasound-guided aspiration performed with 18 gauge needles and 5 Mongolian 7 cm centesis catheter. CONSENT and TIME OUT: The procedure, risks, and alternatives were explained to the patient and a consent was signed. [place] Protocol was followed including pre-procedure verification that relevant information/documentation was available, reviewed and properly matched to the patient; consent accurate and complete; and equipment and supplies available. Time Out was conducted just prior to starting procedure to verify the four required elements: patient identity, correct side/site marked (if applicable), procedure, relevant images/results properly labeled and displayed (if applicable). PROCEDURE: The patient was positioned supine on the ultrasound table. The left lower face skin was prepped with ChloraPrep. 5 cc of 1 percent lidocaine used for local anesthesia. 30 cc of pus was aspirated and sent to the lab. Pressure was held on the biopsy site until all bleeding subsided. The skin incision was closed with Steri-Strips. LATERALITY: Left lower face/pre mandibular space LESION: Complex heterogeneous collection of fluid measuring approximately 5 cm. IMPRESSION: Ultrasound-guided aspiration of abscess. A moderately large amount of heterogeneous fluid remains. Dictated by Yordan Corona MD @ 11/14/2023 4:03:52 PM (Electronically Signed)
--- NOTE | 2023-11-14 13:00 | CRLHL7_ITS ---
For Patients: As a result of the Century Cures Act, medical imaging exams and procedure reports are released immediately into your electronic medical record. You may view this report before your referring provider. If you have questions, please contact your health care provider. ULTRASOUND-GUIDED LEFT CHEEK MASS BIOPSY CLINICAL HISTORY: Large left pre mandibular soft tissue mass. COMPARISON STUDIES: CT 11/07/2023 TECHNIQUE: Real-time ultrasound with image documentation was used for targeting the left facial lesion. Ultrasound-guided biopsy was performed with a spring-loaded 18 gauge needle. CONSENT and TIME OUT: The procedure, risks, and alternatives were explained to the patient and a consent was signed. [place] Protocol was followed including pre-procedure verification that relevant information/documentation was available, reviewed and properly matched to the patient; consent accurate and complete; and equipment and supplies available. Time Out was conducted just prior to starting procedure to verify the four required elements: patient identity, correct side/site marked (if applicable), procedure, relevant images/results properly labeled and displayed (if applicable). PROCEDURE: The patient was positioned supine on the ultrasound table. The left lower face skin was prepped with ChloraPrep. 5 cc of 1 percent lidocaine used for local anesthesia. A small skin incision was made. 3 core needle specimens were obtained at the periphery of the mass. Specimens were placed in formalin. Pressure was held on the biopsy site until all bleeding subsided. The skin incision was closed with Steri-Strips. LATERALITY: Left lower face/pre mandibular space LESION: Complex heterogeneous collection of fluid measuring approximately 5 cm. Biopsy of the edge of the mass performed IMPRESSION: Ultrasound-guided biopsy of the periphery of the complex lesion within the left lower face. Dictated by Yordan Corona MD @ 11/14/2023 4:05:32 PM (Electronically Signed)
--- OUTSIDE RECORDS SUMMARY | 2023-11-14 13:03 | XMS_ITS | Referral Summary ---
Author Organization [place] Address [facility] [place] [address] Care Team Providers Care Shampoo Technician Name Role Phone Unavailable Primary Care Provider [...] 3.4 - 5.3 mmol/L 12/24/2020 12:51 AM [facility] Chloride 104 94 - 109 mmol/L 12/24/2020 12:51 AM [facility] Carbon Dioxide (CO2) 26 20 - 32 mmol/L 12/24/2020 12:51 AM [facility] Anion Gap 3 3 - 14 mmol/L 12/24/2020 12:51 AM [facility] Urea Nitrogen 14 7 - 30 mg/dL 12/24/2020 12:51 AM [facility] Creatinine 0.75 0.66 - 1.25 mg/dL 12/24/2020 12:51 AM [facility] Calcium 8.8 8.5 - 10.1 mg/dL 12/24/2020 12:51 AM [facility] Glucose 149(H) 70 - 99 mg/dL 12/24/2020 12:51 AM [facility] Alkaline Phosphatase 68 40 - 150 U/L 12/24/2020 12:51 AM [facility] AST 20 0 - 45 U/L 12/24/2020 12:51 AM [facility] ALT 24 0 - 70 U/L 12/24/2020 12:51 AM [facility] Protein Total 7.9 6.8 - 8.8 g/dL 12/24/2020 12:51 AM [facility] Albumin 3.3(L) 3.4 - 5.0 g/dL 12/24/2020 12:51 AM [facility] Bilirubin Total 0.3 0.2 - 1.3 mg/dL 12/24/2020 12:51 AM [facility] GFR Estimate >90 >60 mL/min/1.7 3m2 12/24/2020 12:51 AM [facility] Comment:As of October 29, 2020, eGFR [...] [facility] [address] (1st floor, no room number) [place] [address], [facility] [phone] from Last 3 Months or Most Recently Relevant to Health Maintenance
--- OUTSIDE RECORDS SUMMARY | 2023-11-14 13:03 | XMS_ITS | Clinical Summary ---
Author Organization [place] Address [address] [facility] [place] [address] Care Team Providers Care Jewel Bearing Polisher Name Role Phone Unavailable Primary Care Provider [...] MD LAB - BLOOD ORDERABL ES LABORATORY [facility] Lab [address] Lab (1st floor, no room number) [place] [address], [facility] [phone] from Last 3 Months or Most Recently Relevant to Health Maintenance
--- OUTSIDE RECORDS SUMMARY | 2023-11-14 13:03 | XMS_ITS | Clinical Summary ---
Author Organization [facility] Address [place], [place] [address] Care Team Providers Care Pathologist Assistant Name Role Phone Paras Lorenz MD Primary [...] ??C (97.2 ??F) 04/17/2020 1 1:29 PM PASSENGER TIRE BUILDER Respiratory Rate 20 04/17/2020 11:2 9 PM PASSENGER TIRE BUILDER Oxygen Saturation 95% 12/27/2020 10: 05 AM [...] Influenza for age 65+ 12/21/2023 Care Teams Pathologist Assistant Relationship Specialty Start Date End Date Paras Lorenz MD PCP - General Family Practice 04/17/20
== END 2023-11-14 13:01 | disposition home or self-care (01) ==
LOC: US 13:01
PROVIDERS: PCP Family Medicine; Visit Provider Otolaryngology
DX: R22.1 Localized swelling, mass and lump, neck (principal)
CPT/HCPCS: 10005; 20206; 76942; 87070; 87205; 88112; 88302; 88304; 88305

== ENCOUNTER 2024-06-14 15:39 | Outpatient (CLI) | payer MEDICARE, SELFPAY | END 2024-06-14 15:40 | disposition home or self-care (01) | LOC: NFLDREF 06-16 07:28 | PROVIDERS: PCP Family Medicine; Referring Provider Family Medicine; Visit Provider Nurse Practitioner Family | DX: R53.1 Weakness (principal); R10.9 Unspecified abdominal pain; R11.0 Nausea | CPT/HCPCS: 84484 ==

== ENCOUNTER 2024-06-14 16:45 | Emergency (ER) | payer MEDICARE, SELFPAY ==
[2024-06-14] VITALS (18 sets, daily range): BP systolic 83–113; BP diastolic 62–98; PULSE 85–103; RESP 10–30; TEMP 36.2–36.8; O2SAT 92–99; BMI 40.6
--- OUTSIDE RECORDS SUMMARY | 2024-06-14 16:47 | XMS_ITS | Clinical Summary ---
Author Organization [facility] Address [address] [place] [id number] Care Team Providers Care Churn Drill Operator Name Role Phone Paras Lorenz MD Primary [...] Recorded Sex Assigned at Not on file Legal Sex Male 7:04 AM SOYFREEZE OPERATOR Gender Identity Not on file Sexual Orientation Not on file Obstetrics History Last Filed Vital Signs Vital Sign Reading Time Taken Comments Blood Pressure 158/96 12/27/2020 10:05 AM CDT Pulse 87 12/27/2020 10:05 AM CDT Temperature 36.2 C (97.2 F) 04/17/2020 11:29 PM SOYFREEZE OPERATOR Respiratory Rate 20 04/17/2020 11:2 9 PM SOYFREEZE OPERATOR Oxygen Saturation 95% 12/27/2020 10: 05 AM [...] for age 18-79 1965 Tetanus booster 1967 Pneumococcal series for age 50+ (1 of 1 - PCV) 997 Zoster (shingles) series for age 50+ (1 of 2) 02/14/19 97 Medicare Wellness for age 65+ 02/15/2012 BMI (ht and wt on same day) for age 18+ 12/27/2021 0 12/27/2020 RSV vaccine for adults or pr egnancy (1 - 1-dose 75+ series) 2022 COVID-19 vaccine series ( - 2023- season) Influenza for age 65+ 12/21/2023 Insurance MEDICARE PB ONLY MEDICARE PART A HB ONLY MEDICARE PART B HB ONLY Care Teams Churn Drill Operator Relationship Specialty Start Date End Date Paras Lorenz MD PCP - General Family Practice 04/17/20
--- OUTSIDE RECORDS SUMMARY | 2024-06-14 16:47 | XMS_ITS | Clinical Summary ---
Author Organization [place] Address [address] [place] [address]. [place] [address] Care Team Providers Care Labeling Specialist Name Role Phone Unavailable Primary Care Provider [...] at Not on file Legal Sex Male 2:48 PM CDT Gender Identity Not on file Sexual Orientation Not on file Last Filed Vital Signs Vital Sign Reading Time Taken Comments Blood Pressure 151/97 12/24/2020 1:30 AM CDT Pulse 100 12/24/2020 1:30 AM CDT Temperature 36.8 C (98.3 F) 12/23/2020 10:07 PM CDT Respiratory Rate 25 12/24/2020 1:30 AM CDT Oxygen Saturation 97% 12/24/2020 1:30 AM CDT Inhaled Oxygen Concentration - - Weight 136.1 kg (300 lb) 12/23/2020 10:07 PM CDT Height - - Body Mass Index - - Plan of Treatment Not on file Insurance [place] [address] [place] [id number]
--- NOTE | 2024-06-14 17:33 | CRLHL7_ITS ---
For Patients: As a result of the 21st Century Cures Act, medical imaging exams and procedure reports are released immediately into your electronic medical record. You may view this report before your referring provider. If you have questions, please contact your health care provider. INDICATION: .DIFFUSE ABD DISCOMFORT, INCARCERATED VENTRAL HERNIA TECHNIQUE: CT abdomen and pelvis without contrast. COMPARISON: None. FINDINGS: Lower chest: Bibasilar dependent linear reticular opacities likely parenchymal fibrotic change. A few scattered sub 6 millimeter indeterminate pulmonary nodules within the lung bases. Middle lobe centrilobular ground-glass nodular opacities likely cellular bronchiolitis of infectious/aspiratory etiology. Pulmonary trunk measures 42 millimeters. A nonspecific finding however can be seen the setting of underlying pulmonary artery hypertension. ABDOMEN: Liver: Normal attenuation. Gallbladder and biliary: Cholelithiasis in an otherwise normal gallbladder. Normal caliber bile ducts. Spleen: Normal size and attenuation. Pancreas: The noncontrast pancreas is homogeneous in attenuation without peripancreatic inflammatory changes or ductal dilatation. Adrenal glands: Normal adrenal glands. Kidneys and ureters: Normal attenuation. No radio-opaque calculi. No hydroureteronephrosis. Right renal cyst. GI tract: Stomach is distended with fluid and air. Esophagus is distended with fluid extending superiorly off the field of view. Associated fluid-filled dilated loops of small bowel extending to a transition points in the patient`s supraumbilical hernia containing a loop jejunum with distal small bowel decompressed. No pneumatosis. Large bowel is relatively decompressed. Normal appendix. Vascular structures: Normal caliber aorta with atherosclerotic calcifications. Lymph nodes: No lymphadenopathy in the abdomen or pelvis by size criteria. Peritoneum: No free air, free fluid, or focal drainable fluid collection. PELVIS: Genitourinary system: Urinary bladder is relatively decompressed. Normal-sized prostate. Likely layering dependent bladder stone measuring 3 millimeters. SKELETAL STRUCTURES AND SOFT TISSUES: Multilevel spondylosis. Small sclerotic focus in the L4 vertebral body, statistically a bone island. IMPRESSION: Acute high-grade small-bowel obstruction with transition point in the patient`s supraumbilical hernia. Recommend surgical consultation. No pneumatosis. Please note that all CT scans at this facility use dose modulation, iterative reconstruction, and/or weight-based dosing when appropriate to reduce radiation dose to as low as reasonably achievable. Dictated by Yordan Sheriff MD @ 06/14/2024 7:16:41 PM (Electronically Signed)
--- NOTE | 2024-06-14 17:38 | ED_ITS ---
HPI - General Adult General Date Seen: 06/14/24 Chief complaint: Weakness Stated complaint: Afib Time Seen by Provider: 06/14/24 17:17 Source: patient Mode of arrival: ambulatory Limitations: no limitations History of Present Illness HPI narrative: Patient is a 79-year-old male presenting to the emergency department for abdominal pain, weakness and new onset AFib. Patient states about 5 days ago he was eating something being very nauseated causing him to vomit. States he was feeling sick for couple days but feels like he started getting much worse over the past 3 days. Continue to not have much of an appetite and well feel very nauseated and vomiting while he is anything more than small amounts of fluid. Since then his ventral hernia, which is usually reducible, is now tender to the touch and non reducible. Does state he slept better over the past 2 days and does feel like the abdominal pain as he getting better. Overall his abdominal pain seems to be on throughout his abdomen and not localized around the hernia. Has noticed increased bloating. He does have on the some back pain he states around the lower ribs but seemed to occur after he started vomiting. He feels like it is due to the vomiting. Denies any chest pain or shortness of breath. Denies fevers, chills, headache, numbness, blood in his stool. Last bowel movement 3 days ago and states he usually has bowel movement every 2 or 3 days. States at baseline he is not have much appetite due to the medication he is on. Related Data Previous Rx's ?Medication ?Instructions ?Recorded blood pressure monitor #1 ea 05/27/22 atorvastatin 40 mg tablet 40 mg PO QHS #90 tabs 09/19/23 bupropion HCl 150 mg 24 hr tablet, 150 mg PO QAM #90 tabs 09/19/23 extended release (Wellbutrin XL) furosemide 20 mg tablet 20 mg PO DAILY #90 tabs 09/19/23 lisinopril 10 1 tab PO DAILY #90 tabs 09/19/23 mg-hydrochlorothiazide 12.5 mg tablet metoprolol succinate 25 mg 25 mg PO QDAY #90 tabs 09/19/23 tablet,extended release 24 hr metformin 500 mg tablet,extended 500 mg PO BID #180 tabs 09/22/23 release 24 hr Allergies Allergy/AdvReac Type Severity Reaction Status Date / Time Penicillins Allergy Mild swollen Verified 06/14/24 15:11 ears Review of Systems Status of ROS: Reports: 10 or more systems reviewed and unremarkable except as noted in History and below PFSH PFSH Medical History Chronic ulcer of lower extremity (09/21/12) ?L97.909 - Non-pressure chronic ulcer of unspecified part of unspecified lower leg with unspecified severity (ICD-10) Herpes zoster (09/21/12) ?B02.9 - Zoster without complications (ICD-10) Malignant neoplasm of skin (09/21/12) ?C44.90 - Unspecified malignant neoplasm of skin, unspecified (ICD-10) Traumatic rupture of Achilles tendon (09/28/12) ?S86.019A - Strain of unspecified Achilles tendon, initial encounter (ICD-10) Surgical History History of Achilles tendon repair ?Z98.890 - Other specified postprocedural states (ICD-10) H/O elbow surgery ?Z98.890 - Other specified postprocedural states (ICD-10) Family History Mother Dementia Brother Sleep apnea Father Myocardial infarction Social History Narrative: Nicotine dependence Does not drink alcohol Does not use illicit drugs What is your current living situation?: I presently have a place to live Problems where you live: no known problems In the past 12 months, utilities in danger of being shut off: no In past 12 months, lack of transportation kept you from medical appts, meetings, work, or getting things needed for daily living: no In the past 12 mos, have been you worried that your food would run out before you had money to buy more?: never true In the past 12 mos, the food you bought just didn't last and you didn't have money to buy more?: never true Highest level of school completed/degree received: some college, no degree Smoking Status: Never smoker Do you use any of these nicotine containing products: None How often do you have a drink containing alcohol: monthly or less Alcohol type: wine How often do you have six or more drinks on one occasion: Never AUDIT-C Alcohol total score: 1 Non-prescribed substance use: denies use Caffeine: Yes (coffee) How often does anyone, including family, friends and others, physically hurt you : never How often does anyone, including family, friends and others, insult or talk down to you: never How often does anyone, including family, friends and others, threaten you with harm: never How often does anyone, including family, friends and others, scream or curse at you: never service: No Exam Narrative: Exam Narrative: Const: Well-nourished, Well-developed, in mild distress Eyes: PERRL, no conjunctival injection, and symmetrical lids HENT: Atraumatic external nose and ears. Moist mucous membranes. Neck: Symmetric, trachea midline, No thyromegaly. CVS: RRR, No murmurs or gallops. Peripheral pulses 2+ and equal in all extremities RESP: Unlabored respiratory effort. Clear to auscultation bilaterally. GI: Repair non reducible ventral hernia, tender to the touch. Diffuse abdominal tenderness. Mild bloating. No guarding. MSK:Extremities w/o deformity, Normal Active ROM Skin: Warm, Dry. No rashes or lesions. Neuro: Normal Muscle tone, No focal neurological deficits. Psych: Awake, Alert, & Oriented x3. Appropriate mood and affect. Const: Vital Signs, click to edit/add: Vital Signs - 24 hr 06/14/24 17:11 06/14/24 17:32 06/14/24 17:33 Temperature 98.3 F Pulse Rate 87 Pulse Rate [Pulse Oximeter] 103 H Respiratory Rate 22 10 L 30 H Blood Pressure 108/98 H Blood Pressure [Le ft Upper Arm] Pulse Oximetry 98 95 Oxygen Delivery Me thod Room Air 06/14/24 17:44 06/14/24 17:45 06/14/24 17:46 Temperature Pulse Rate 88 88 87 Pulse Rate [Pulse Oximeter] Respiratory Rate 11 L 11 L 15 Blood Pressure 83/65 L 93/62 Blood Pressure [Le ft Upper Arm] Pulse Oximetry 95 92 94 Oxygen Delivery Me thod 06/14/24 18:02 06/14/24 18:47 06/14/24 18:55 Temperature 97.1 F L Pulse Rate 86 86 Pulse Rate [Pulse Oximeter] 85 Respiratory Rate 16 14 18 Blood Pressure 98/66 99/86 Blood Pressure [Le ft Upper Arm] 95/64 Pulse Oximetry 95 98 97 Oxygen Delivery Me thod Room Air 06/14/24 18:57 06/14/24 19:02 06/14/24 19:32 Temperature Pulse Rate 94 90 100 Pulse Rate [Pulse Oximeter] Respiratory Rate 17 14 17 Blood Pressure 95/64 98/83 111/83 Blood Pressure [Le ft Upper Arm] Pulse Oximetry 99 97 98 Oxygen Delivery Me thod 06/14/24 20:02 06/14/24 20:32 06/14/24 21:02 Temperature Pulse Rate 90 86 88 Pulse Rate [Pulse Oximeter] Respiratory Rate 18 16 16 Blood Pressure 112/69 106/82 106/75 Blood Pressure [Le ft Upper Arm] Pulse Oximetry 98 97 98 Oxygen Delivery Me thod 06/14/24 21:32 06/14/24 22:01 Temperature Pulse Rate 85 87 Pulse Rate [Pulse Oximeter] Respiratory Rate 24 16 Blood Pressure 113/87 96/80 Blood Pressure [Le ft Upper Arm] Pulse Oximetry 98 98 Oxygen Delivery Me thod Course Vital Signs Vital signs: Initial Vital Signs Temperature 98.3 F 06/14/24 17:11 Temperature Source Temporal Artery Scan 06/14/24 17:11 Pulse Rate 103 H 06/14/24 17:11 Pulse Rhythm Irregular 06/14/24 17:11 Respiratory Rate 22 06/14/24 17:11 Pulse Oximetry 98 06/14/24 17:11 Oxygen Delivery Method Room Air 06/14/24 17:11 Vital Signs Temperature 98.3 F 06/14/24 17:11 Pulse Rate 103 H 06/14/24 17:11 Respiratory Rate 22 06/14/24 17:11 Pulse Oximetry 98 06/14/24 17:11 Oxygen Delivery Method Room Air 06/14/24 17:11 Temperature 97.1 F L 06/14/24 18:55 Pulse Rate 87 06/14/24 22:01 Respiratory Rate 16 06/14/24 22:01 Blood Pressure 96/80 06/14/24 22:01 Pulse Oximetry 98 06/14/24 22:01 Oxygen Delivery Method Room Air 06/14/24 18:55 Medications Administered Medications: Discontinued Medications Generic Name Dose Route Start Last Admin Trade Name Freq PRN Reason Stop Dose Admin Sodium Chloride 1,000 mls @ 1,000 mls/hr 06/14/24 18:00 06/14/24 18:47 0.9 % Sodium Chloride 1000 Ml IV 06/14/24 18:59 Infused .Q1H YVROSE Infusion Medical Decision Making MDM Narrative Medical decision making narrative: Patient is a 79-year-old male presenting for new onset AFib and abdominal pain. His his biggest concern is the weakness and abdominal pain. With the hernia I am concerned he could be having an incarcerated hernia with bowel loops causing a bowel obstruction. Will do a CT scan for better evaluation. This will also help evaluated for any other intra-abdominal issues. Differentials includes diverticulitis, appendicitis, gastroenteritis, pancreatitis, gallbladder and liver disease. He also has his new onset AFib. Unsure was currently is causing his. Will do a broad workup including repeat troponin as point of care at Urgent Care was elevated at 0.06. Will also order an EKG, TSH, BNP, magnesium, CMP. CBC was done at Urgent Care with no concerning findings. COVID/flu/RSV ordered. Viral swabs were negative. CMP returns with a hyponatremia which is abnormal for him. He also shows acute renal failure. His lactate is elevated 4.1. L fluids was given. Troponin within normal limits. TSH within normal limits. BNP is elevated but he showing no clinical signs of acute heart failure. I am hesitant to give him any further fluids as he is otherwise stable at this time and I would be concerned I could fluid overload him. At this time is not showing any clear signs of sepsis I believe all symptoms are due to this incarcerated hernia. Most likely everything will improve after his hernia is fixed. CT scan reviewed by myself does show this incarcerated hernia with a small-bowel obstruction He is a new onset AFib in not on any blood thinners. I spoke to our on-call surgeon and she recommends transferring the patient due to his multiple up issues as we are not able to handle everything here. I tried to speak to multiple hospitals for transfer and finally was able to transfer him to [facility] straight to the emergency department. He is agreeable to this plan. The surgeon at [facility] does recommend NG tube and this will be placed. On my review vital signs are stable throughout time in in the emergency department. Oximetry stayed in the mid to high 90s. government affairs fellow showed no concerning arrhythmias. Lab Data Labs: Lab Results 06/14/24 06/14/24 06/14/24 Range/Units 17:35 17:45 17:45 Sodium 127 L (135-149) mmol/L Potassium 4.6 (3.6-5.1) mmol/L Chloride 84 L (96-114) mmol/L Carbon Dioxide 20 (20-32) mmol/L Anion Gap 23 H (7-15) mEq/L BUN 86 H (7-30) mg/dL Creatinine 4.2 H (0.5-1.5) mg/dL Estimated Creat Clear 11.38 Estimated GFR 14 ml/min Glucose 126 H (60-115) mg/dL Lactate 4.1 H* (0.5-1.9) mmol/L Calcium 9.6 (8.4-10.6) mg/dL Magnesium 1.8 Cancelled (1.5-2.6) mg/dL Total Bilirubin 0.7 (0.1-1.5) mg/dL AST 22 (12-35) U/L ALT 16 (4-50) U/L Alkaline Phosphatase 65 (40-150) U/L Troponin I 0.02 (0.01-0.04) ng/mL NT-Pro-B Natriuret Pep 9790 pg/mL Total Protein (6.0-8.3) g/dL Albumin (3.3-5.0) g/dL Lipase (23-300) U/L TSH (0.270-4.200) uIU/mL SARS-CoV-2 (PCR) (Negative) Influenza Type A (PCR) (Negative) Influenza Type B (PCR) (Negative) RSV (PCR) (Negative) POC Creatinine 4.7 H (0.6-1.3) mg/dl 06/14/24 06/14/24 06/14/24 Range/Units 17:45 17:45 19:47 Sodium (135-149) mmol/L Potassium (3.6-5.1) mmol/L Chloride (96-114) mmol/L Carbon Dioxide (20-32) mmol/L Anion Gap (7-15) mEq/L BUN (7-30) mg/dL Creatinine (0.5-1.5) mg/dL Estimated Creat Clear Estimated GFR ml/min Glucose (60-115) mg/dL Lactate 2.8 H (0.5-1.9) mmol/L Calcium (8.4-10.6) mg/dL Magnesium (1.5-2.6) mg/dL Total Bilirubin (0.1-1.5) mg/dL AST (12-35) U/L ALT (4-50) U/L Alkaline Phosphatase (40-150) U/L Troponin I (0.01-0.04) ng/mL NT-Pro-B Natriuret Pep Cancelled pg/mL Total Protein 7.3 (6.0-8.3) g/dL Albumin 4.4 (3.3-5.0) g/dL Lipase 166 Cancelled (23-300) U/L TSH 2.260 (0.270-4.200) uIU/mL SARS-CoV-2 (PCR) Negative SARS-CoV-2 (Negative) Influenza Type A (PCR) Negative PCR FLU A (Negative) Influenza Type B (PCR) Negative PCR FLU B (Negative) RSV (PCR) Negative PCR RSV (Negative) POC Creatinine (0.6-1.3) mg/dl Imaging Data CT scan abdomen pelvis: Attestation: I have reviewed the pertinent imaging results. Radiologist's impression: Acute high-grade small-bowel obstruction with transition point in the patient`s supraumbilical hernia. Recommend surgical consultation. No pneumatosis. Please note that all CT scans at this facility use dose modulation, iterative reconstruction, and/or weight-based dosing when appropriate to reduce radiation dose to as low as reasonably achievable. Dictated by Yordan Sheriff MD @ 06/14/2024 7:16:41 PM ECG Data Attestation: I personally reviewed and interpreted this ECG as follows: Prior ECG tracings: not available for review Interpretation: AFib with a rate of 93 beats per minute, left axis seen deviation, normal QRS and QTC, no ST or T-wave abnormalities Critical Care Time Critical Care Time Critical Care Time: Yes Attestation: The patient required my highest level preparedness to intervene emergently and I personally spent this critical care time directly and personally managing the patient. This critical care time included: Obtaining a history; Examining the patient; Pulse oximetry; Ordering and reviewing of studies; Arranging urgent treatment with development of a management plan; Evaluation of patients response to treatment; Frequent reassessment discussions with other providers. This critical care time was performed to assess and manage the high probability of imminent life-threatening deterioration that could result in multiorgan failure. It was exclusive of separate billable procedures and treating other patients and teaching time. Total Critical Care Time in Minutes: 54 Discharge Plan Discharge Clinical Impression: Incarcerated hernia, Complete small bowel obstruction, Acute hyponatremia Acute renal failure Qualifiers: Acute renal failure type: unspecified Qualified Code(s): N17.9 - Acute kidney failure, unspecified A-fib Qualifiers: Atrial fibrillation type: unspecified Qualified Code(s): I48.91 - Unspecified atrial fibrillation Patient Disposition: [facility] Condition: Critical Prescriptions: No Action (DME) blood pressure monitor Kit See Rx Instructions .Route Qty: 1 0RF Rx Instructions: test blood pressure bid metoprolol succinate 25 mg tablet extended release 24 hr 25 mg PO QDAY Qty: 90 3RF lisinopril-hydrochlorothiazide 10-12.5 mg tablet 1 tab PO DAILY Qty: 90 3RF furosemide 20 mg tablet 20 mg PO DAILY Qty: 90 3RF atorvastatin 40 mg tablet 40 mg PO QHS Qty: 90 3RF bupropion HCl [Wellbutrin XL] 150 mg tablet extended release 24 hr 150 mg PO QAM Qty: 90 3RF metformin 500 mg tablet extended release 24 hr 500 mg PO BID Qty: 180 3RF Follow Up/Referrals: Kristel Zimmerman MD [Primary Care Provider] - Stand Alone Forms: MyHealth Info Instructions
[2024-06-14 17:50] LABS: Creatinine, Point-of-Care* 4.7 mg/dl (0.6-1.3)
[2024-06-14] MEDS: 0.9 % SODIUM CHLORIDE 1000 ml 1,000 ML IV (17:57)
[2024-06-14 17:59] LABS: Lactate Sepsis w/Reflex* 4.1 mmol/L (0.5-1.9)
--- OUTSIDE RECORDS SUMMARY | 2024-06-14 18:04 | XMS_ITS | Clinical Summary ---
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
--- OUTSIDE RECORDS SUMMARY | 2024-06-14 18:04 | XMS_ITS | Clinical Summary ---
Author Organization [facility] Address [address] [place] [address]. [place] [address] Care Team Providers Care Systems Architect Name Role Phone Unavailable Primary Care Provider [...]
[2024-06-14 18:10] LABS: Albumin* 4.4 g/dL (3.3-5.0); Chloride* 84 mmol/L (96-114); Potassium* 4.6 mmol/L (3.6-5.1); Sodium* 127 mmol/L (135-149)
[2024-06-14 18:12] LABS: Anion Gap 23 mEq/L (7-15); Bilirubin Total* 0.7 mg/dL (0.1-1.5); Carbon Dioxide* 20 mmol/L (20-32); Creatinine* 4.2 mg/dL (0.5-1.5); Est. Creatinine Clearance* 11.38; Estimated Glomerular Filt Rate 14 ml/min
[2024-06-14 18:13] LABS: Alanine Aminotransferase* 16 U/L (4-50); Alkaline Phosphatase* 65 U/L (40-150); Aspartate Amino Transferase* 22 U/L (12-35); Blood Urea Nitrogen* 86 mg/dL (7-30); Calcium* 9.6 mg/dL (8.4-10.6); Glucose* 126 mg/dL (60-115); Lipase* 166 U/L (23-300); Total Protein* 7.3 g/dL (6.0-8.3)
[2024-06-14 18:14] LABS: Magnesium* 1.8 mg/dL (1.5-2.6)
[2024-06-14 18:25] LABS: Troponin I* 0.02 ng/mL (0.01-0.04)
[2024-06-14 18:41] LABS: PCR FLU A Negative PCR FLU A (Negative); PCR FLU B Negative PCR FLU B (Negative); PCR RSV Negative PCR RSV (Negative); SARS PCR* Negative SARS-CoV-2 (Negative)
[2024-06-14 18:51] LABS: NT Pro B Type NatriureticPept* 9790 pg/mL
[2024-06-14 19:57] LABS: Lactate Sepsis 2 Hour 2.8 mmol/L (0.5-1.9)
--- NOTE | 2024-06-14 22:14 | CRLHL7_ITS ---
For Patients: As a result of the Century Cures Act, medical imaging exams and procedure reports are released immediately into your electronic medical record. You may view this report before your referring provider. If you have questions, please contact your health care provider. INDICATION: NG tube placement TECHNIQUE: Chest radiograph 1 view on 2 films COMPARISON: None FINDINGS: The sensitivity and specificity of the exam are moderately limited by the patient`s body habitus. Mediastinum: The mediastinum is normal in appearance. NG tube is present with the tip in the gastric cardia and side port at the GE junction. Lung: Small lung volumes are noted with mild bibasilar atelectasis. No sign of pleural effusion seen. No pneumothorax is identified. Bone and Soft tissue: Unremarkable for age. IMPRESSIONS: 1. NG tube is present with the tip in the gastric cardia and side port at the GE junction. 2. Small lung volumes are noted with mild bibasilar atelectasis. Dictated by Ruy Spann MD @ 06/14/2024 10:53:55 PM Dictated by: Ruy Spann MD @ 06/14/2024 22:53:59 (Electronically Signed)
== END 2024-06-14 23:05 | disposition short-term general hospital (02) ==
PROVIDERS: Emergency Provider Student in an Organized Health Care Education/Training Program; PCP Family Medicine
DX: N17.9 Acute kidney failure, unspecified (principal); I48.91 Unspecified atrial fibrillation; K43.6 Other and unspecified ventral hernia with obstruction, without gangrene
CPT/HCPCS: 43752; 36415; 71045; 74176; 80053; 82565; 83605; 83690; 83735; 83880; 84443; 84484; 87040; 87631; 93005; 99285; 99291; J7030

== ENCOUNTER 2024-06-14 22:59 | Outpatient (CLI) | payer MEDICARE, SELFPAY | END 2024-06-14 23:00 | disposition home or self-care (01) | LOC: AMB 06-16 10:05 | PROVIDERS: PCP Family Medicine; Visit Provider Emergency Medicine | DX: R10.9 Unspecified abdominal pain (principal); R11.2 Nausea with vomiting, unspecified | CPT/HCPCS: A0425; A0427 ==

== ENCOUNTER 2024-07-08 14:38 | Outpatient (CLI) | payer MEDICARE, SELFPAY | END 2024-07-08 14:39 | disposition home or self-care (01) | PROVIDERS: PCP Family Medicine; Visit Provider Family Medicine | DX: E78.2 Mixed hyperlipidemia (principal); E87.1 Hypo-osmolality and hyponatremia; E11.69 Type 2 diabetes mellitus with other specified complication | CPT/HCPCS: 80061; 82607 ==

== ENCOUNTER 2024-07-20 12:43 | Outpatient (CLI) | payer MEDICARE, SELFPAY | END 2024-07-20 12:44 | disposition home or self-care (01) | LOC: FRMREF 12:44 | PROVIDERS: PCP Family Medicine; Visit Provider Family Medicine | DX: I10 Essential (primary) hypertension (principal); E11.69 Type 2 diabetes mellitus with other specified complication | CPT/HCPCS: 82043; 82570 ==

== ENCOUNTER 2024-08-06 15:22 | Outpatient (CLI) | payer MEDICARE, SELFPAY | END 2024-08-06 15:23 | disposition home or self-care (01) | LOC: NFLDREF 08-11 02:05 | PROVIDERS: PCP Family Medicine; Referring Provider Family Medicine; Visit Provider Family Medicine | DX: Z79.01 Long term (current) use of anticoagulants (principal) | CPT/HCPCS: 85610 ==

== ENCOUNTER 2024-08-09 15:04 | Outpatient (CLI) | payer MEDICARE, SELFPAY ==
--- NOTE | 2024-08-09 15:00 | CRLHL7_ITS ---
For Patients: As a result of the Cures Act, medical imaging exams and procedure reports are released immediately into your electronic medical record. You may view this report before your referring provider. If you have questions, please contact your health care provider. INDICATION: Lung cancer screening. History of smoking. High risk patient with greater than 20 pack-year smoking history. TECHNIQUE: Low-dose lung cancer screening non-contrast CT chest. Dose reduction techniques were used. COMPARISON: CT abdomen 06/14/2024 FINDINGS: NODULES: Stable nodular densities adjacent to the left lower lobe major fissure and within the left lower lobe pulmonary parenchyma. Noncalcified 8.1 millimeter nodule right upper lobe. 5 millimeter nodule left upper lobe. Small calcified nodule left upper lobe. Subpleural nodule right anterior lung. Small nodule posterior aspect right upper lobe measuring less than 4 millimeters. LUNGS AND PLEURA: Chronic bronchiectatic changes left lower lobe. Chronic mild fibrotic changes right lower lobe. Stable scarring/bronchiectasis in the right upper lobe medially. MEDIASTINUM: Upper limits normal lymph nodes in the mediastinum measuring up to 1.4 cm. Atherosclerotic changes. CORONARY ARTERY CALCIFICATION: Present. LIMITED UPPER ABDOMEN: Calcified gallstones again noted. Postop changes to the anterior bowel loops. MUSCULOSKELETAL: Multilevel degenerative disc disease. No vertebral body compression fracture. IMPRESSION: 8.1 millimeter nodule right upper lobe. Additional smaller nodules elsewhere. LUNG-RADS CATEGORY: 4A: Suspicious. RADIOLOGIST RECOMMENDATION: Low-dose CT chest in 3 months. Alternatively, PET/CT may be used if there is a greater than or equal to 8 mm solid component. Please note that all CT scans at this facility use dose modulation, iterative reconstruction, and/or weight-based dosing when appropriate to reduce radiation dose to as low as reasonably achievable. Dictated by Yordan Corona MD @ 08/10/2024 10:23:35 AM (Electronically Signed)
== END 2024-08-09 15:05 | disposition home or self-care (01) ==
LOC: CT 15:07
PROVIDERS: PCP Family Medicine; Visit Provider Family Medicine
DX: Z12.2 Encounter for screening for malignant neoplasm of respiratory organs (principal); R91.8 Other nonspecific abnormal finding of lung field; Z87.891 Personal history of nicotine dependence
CPT/HCPCS: 71271

== ENCOUNTER 2024-11-25 09:50 | Outpatient (CLI) | payer MEDICARE, SELFPAY ==
--- NOTE | 2024-11-25 10:00 | CRLHL7_ITS ---
For Patients: As a result of the Cures Act, medical imaging exams and procedure reports are released immediately into your electronic medical record. You may view this report before your referring provider. If you have questions, please contact your health care provider. INDICATION: Lung cancer screening. History of smoking. High risk patient with greater than 21 pack-year smoking history. TECHNIQUE: Low-dose lung cancer screening non-contrast CT chest. Dose reduction techniques were used. COMPARISON: 08/09/2024 FINDINGS: NODULES: Stable 8 millimeter nodule right upper lobe, 3/41. 5 millimeter nodule left upper lobe, 3/48, unchanged. Subpleural nodules within the right anterior lung measure up to 4 millimeters, unchanged. Stable 5 millimeter nodule right upper lobe 3/38. Stable nodules within the left lower lobe measuring 7 millimeters and 9 millimeters. Other smaller nodules are present elsewhere bilaterally. LUNGS AND PLEURA: Fibrotic changes are present bilaterally. MEDIASTINUM: Stable intrathoracic nodes. Visualized thyroid gland is normal. CORONARY ARTERY CALCIFICATION: Moderate. LIMITED UPPER ABDOMEN: Calcified gallstones again noted. MUSCULOSKELETAL: No fracture. Degenerative changes. IMPRESSION: Stable bilateral pulmonary nodules. LUNG-RADS CATEGORY: 2: Benign. RADIOLOGIST RECOMMENDATION: Continue annual screening, if eligible, with low-dose CT chest in 12 months. Please note that all CT scans at this facility use dose modulation, iterative reconstruction, and/or weight-based dosing when appropriate to reduce radiation dose to as low as reasonably achievable. Dictated by Yordan Corona MD @ 11/25/2024 10:56:25 AM (Electronically Signed)
== END 2024-11-25 09:51 | disposition home or self-care (01) ==
LOC: CT 09:51
PROVIDERS: PCP Family Medicine; Visit Provider Family Medicine
DX: Z12.2 Encounter for screening for malignant neoplasm of respiratory organs (principal); R91.8 Other nonspecific abnormal finding of lung field; Z87.891 Personal history of nicotine dependence
CPT/HCPCS: 71250

== ENCOUNTER 2025-04-13 09:45 | Outpatient (CLI) | payer MEDICARE, SELFPAY | END 2025-04-13 09:46 | disposition home or self-care (01) | LOC: NFLDREF 04-18 11:11 | PROVIDERS: PCP Family Medicine; Referring Provider Family Medicine; Visit Provider Family Medicine | DX: I48.91 Unspecified atrial fibrillation (principal); Z79.01 Long term (current) use of anticoagulants | CPT/HCPCS: 85610 ==